=== PATIENT | male | born 1955 | race Caucasian/White ===

== ENCOUNTER 2016-08-28 01:40 | Emergency (ER) | payer MEDICAID, MEDICARE ==
[~2016-08-28] VITALS: Ht 167.6 cm; Wt 90.9 kg
[~2016-08-28 01:40] MED LIST: AMLO-147 PO; ASPI81TA3 PO; ATOR80TA75 PO; CARV12.579 PO; DIAZ-90 PO; FER325 PO; FURO-110 PO; IBUP-1542 PO; LISI2.5T59 PO; NAPR-260 PO; NITR0.4T6 SL; PRAS5TAB3 PO; TAMS0.4C2 PO
[2016-08-28 01:44] VITALS: Ht 167.6 cm; Wt 90.9 kg
== END 2016-08-28 02:10 | disposition left against medical advice (07) ==
LOC: E/R 01:40
DX: Z53.21 Procedure and treatment not carried out due to patient leaving prior to being seen by health care provider (principal)

== ENCOUNTER 2016-08-29 11:00 | Emergency (ER) | payer MEDICARE, OTHER ==
[~2016-08-29] VITALS: Ht 167.6 cm; Wt 89.5 kg
[2016-08-29 11:03] VITALS: Ht 167.6 cm; Wt 89.5 kg
--- NOTE | 2016-08-29 12:19 | ERD ---
ER Documentation Chief Complaint Date/Time DATE: 08/29/16 TIME: 12:16 Chief Complaint chest pain x 10 min ago HPI Patient is a 61-year-old male with coronary disease and hypertension who presents with chest pain. The patient has left-sided chest pain which he describes as a 7 out of 10. It started 20 minutes ago. He says that he does not want to drive with this pain as he was going back to [place]. I saw the patient yesterday for similar symptoms. Review of the old medical record shows multiple visits to ER for chest pain. Review of the emergency department information exchange shows visits to 4 separate emergency departments over the past year and 7 visits to 3 separate emergency departments just in August of this year. He says that he took nitro today for his pain. ROS All systems reviewed and are negative except as per history of present illness. Medications Home Meds Active Scripts Naproxen* (Naprosyn*) 500 Mg Tablet, 500 MG PO BID Y for PAIN AND/OR INFLAMMATION, #30 TAB Prov:HARRIET NINA MD 08/20/15 Ibuprofen* (Motrin*) 600 Mg Tab, 600 MG PO Q8, #30 TAB Prov:LAYO PAN DO 05/22/15 Diazepam* (Valium*) 5 Mg Tablet, 2 MG PO Q8 Y for PAIN LEVEL 6-10, #10 TAB Prov:LAYO PAN DO 01/10/15 Furosemide* (Lasix*) 20 Mg Tablet, 20 MG PO DAILY, #14 TAB Prov:HARRIET NINA MD 10/29/14 Reported Medications Ferrous Sulfate* (Ferrous Sulfate*) 325 Mg Tabec, 325 MG PO DAILY, TAB 12/18/14 Atorvastatin* (Atorvastatin*) 80 Mg Tablet, 80 MG PO HS, TAB 10/27/14 Amlodipine Besylate* (Amlodipine Besylate*) 10 Mg Tablet, 10 MG PO DAILY, TAB 10/27/14 Lisinopril* (Lisinopril*) 2.5 Mg Tablet, 2.5 MG PO DAILY, TAB 10/27/14 Aspirin* (Aspirin* Chew) 81 Mg Tab.chew, 81 MG PO DAILY, TAB.CHEW 10/27/14 Nitroglycerin* (Nitroglycerin* SL) 0.4 Mg Tab.subl, 0.4 MG SL Q5MIN Y for CHEST PAIN, BOTTLE 10/27/14 Carvedilol* (Carvedilol*) 12.5 Mg Tablet, 12.5 MG PO BID, TAB 10/27/14 Prasugrel Hydrochloride* (Effient*) 5 Mg Tablet, 5 MG PO DAILY, TAB 10/27/14 Tamsulosin Hcl* (Tamsulosin Hcl*) 0.4 Mg Cap.er.24h, 0.4 MG PO HS, CAP 10/27/14 Allergies Allergies: Coded Allergies: Penicillins (Verified Allergy, Unknown, SHORT OF BREATHE, 06/05/15) Sulfa (Sulfonamide Antibiotics) (Verified Allergy, Unknown, " GIVES ME TEMPERATURE.", 06/05/15) iodine (Verified Allergy, Unknown, 06/05/15) PMhx/Soc History of Surgery: Yes (appendectomy,tonsillectomy, 8 cardiac stents) Anesthesia Reaction: No Hx Neurological Disorder: No Hx Respiratory Disorders: Yes (chf) Hx Cardiac Disorders: Yes (mi-stents,hld,htn) Hx Psychiatric Problems: No Hx Miscellaneous Medical Probl: Yes (lumbar stenosis) Hx Alcohol Use: No Hx Substance Use: No Hx Tobacco Use: No Smoking Status: Never smoker FmHx Family History: coronary disease Physical Exam Vitals Vital Signs Date Time Temp Pulse Resp B/P Pulse Ox O2 Delivery O2 Flow Rate FiO2 08/29/16 11:03 98.8 102 18 184/84 95 Physical Exam Const: No acute distress Head: Atraumatic Eyes: Normal Conjunctiva ENT: Normal External Ears, Nose and Mouth. Neck: Full range of motion..~ No meningismus. Resp: Clear to auscultation bilaterally Cardio: Regular rate and rhythm, no murmurs Abd: Soft, non tender, non distended. Normal bowel sounds Skin: No petechiae or rashes Back: No midline or flank tenderness Ext: No cyanosis, or edema Neur: Awake and alert Psych: Normal Mood and Affect Procedures/MDM EKG read by me: Rate/Rhythm: Incomplete right bundle branch block Intervals: Normal Impression: Incomplete right bundle branch block without obvious ischemia Patient is a 61-year-old male with cardiac disease who presents with chest pain. He has multiple visits to our emergency department as well as other meds departments for similar complaints. I do believe there may be an element of secondary gain here as he is requesting admission. I do not think he requires admission at this time as I doubt acute coronary syndrome, pneumonia, pneumothorax, pulmonary embolism, or aortic dissection. The patient should follow-up with his primary doctor within 24-48 hours for reevaluation. He can return sooner for any worsening symptoms. I would not give him any narcotic medicines at this time. Departure Diagnosis: Primary Impression: Chest pain Chest pain type: unspecified Qualified Code: R07.9 - Chest pain, unspecified type Condition: Fair Patient Instructions: Chest Pain, Uncertain Cause Referrals: [facility], [facility] YOU HAVE RECEIVED A MEDICAL SCREENING EXAM AND THE RESULTS INDICATE THAT YOU DO NOT HAVE A CONDITION THAT REQUIRES URGENT TREATMENT IN THE EMERGENCY DEPARTMENT. FURTHER EVALUATION AND TREATMENT OF YOUR CONDITION CAN WAIT UNTIL YOU ARE SEEN IN YOUR DOCTORS OFFICE WITHIN THE NEXT 1-2 DAYS. IT IS YOUR RESPONSIBILITY TO MAKE AN APPOINTMENT FOR FOLOW-UP CARE. IF YOU HAVE A PRIMARY DOCTOR --you should call your primary doctor and schedule an appointment IF YOU DO NOT HAVE A PRIMARY DOCTOR YOU CAN CALL OUR PHYSICIAN REFERRAL HOTLINE AT IF YOU CAN NOT AFFORD TO SEE A PHYSICIAN YOU CAN CHOSE FROM THE FOLLOWING [facility] [address] [facility] [address] [facility] [facility] [address] [facility] [address] [facility] [address] [facility] [facility]. [address] Additional Instructions: FOLLOW UP WITH YOUR PRIMARY CARE PHYSICIAN TOMORROW.Return to this facility if you are not improving as expected. MAGAN BEDOYA MD August 29, 2016 12:18
== END 2016-08-29 11:38 | disposition home or self-care (01) ==
LOC: E/R 11:00
DX: R07.9 Chest pain, unspecified (principal); I10 Essential (primary) hypertension; I50.9 Heart failure, unspecified; I25.10 Atherosclerotic heart disease of native coronary artery without angina pectoris; Z79.82 Long term (current) use of aspirin; Z98.61 Coronary angioplasty status
CPT/HCPCS: 99283

== ENCOUNTER 2016-09-08 19:42 | Emergency (ER) | payer MEDICARE, OTHER ==
[~2016-09-08] VITALS: Ht 167.6 cm; Wt 91.0 kg
[2016-09-08 19:49] VITALS: Ht 167.6 cm; Wt 91.0 kg
[2016-09-08] MEDS ORDERED: ASPIRIN 325 MG TAB PO STA (21:13)
--- NOTE | 2016-09-08 21:32 | ERD ---
ER Documentation Chief Complaint Date/Time DATE: 09/08/16 TIME: 21:27 Chief Complaint SHARP LEFT CHEST PAIN RADIATES TO LEFT ARM AND NECK, SOB HPI 61-year-old male who presents with chest pain. The patient is a difficult historian. He states a history of coronary disease and stents. He does describe left-sided chest pain that radiates to his arm. He does not describe the duration of the symptoms with severity. He denies any pleuritic pain. He currently takes anticoagulants for prior history of pulmonary embolism. The patient also takes aspirin and Plavix. He denies exertional symptoms. ROS All systems reviewed and are negative except as per history of present illness. Medications Home Meds Active Scripts Naproxen* (Naprosyn*) 500 Mg Tablet, 500 MG PO BID Y for PAIN AND/OR INFLAMMATION, #30 TAB Prov:HARRIET NINA MD 08/20/15 Ibuprofen* (Motrin*) 600 Mg Tab, 600 MG PO Q8, #30 TAB Prov:LAYO PAN DO 05/22/15 Diazepam* (Valium*) 5 Mg Tablet, 2 MG PO Q8 Y for PAIN LEVEL 6-10, #10 TAB Prov:LAYO PAN DO 01/10/15 Furosemide* (Lasix*) 20 Mg Tablet, 20 MG PO DAILY, #14 TAB Prov:HARRIET NINA MD 10/29/14 Reported Medications Ferrous Sulfate* (Ferrous Sulfate*) 325 Mg Tabec, 325 MG PO DAILY, TAB 12/18/14 Atorvastatin* (Atorvastatin*) 80 Mg Tablet, 80 MG PO HS, TAB 10/27/14 Amlodipine Besylate* (Amlodipine Besylate*) 10 Mg Tablet, 10 MG PO DAILY, TAB 10/27/14 Lisinopril* (Lisinopril*) 2.5 Mg Tablet, 2.5 MG PO DAILY, TAB 10/27/14 Aspirin* (Aspirin* Chew) 81 Mg Tab.chew, 81 MG PO DAILY, TAB.CHEW 10/27/14 Nitroglycerin* (Nitroglycerin* SL) 0.4 Mg Tab.subl, 0.4 MG SL Q5MIN Y for CHEST PAIN, BOTTLE 10/27/14 Carvedilol* (Carvedilol*) 12.5 Mg Tablet, 12.5 MG PO BID, TAB 10/27/14 Prasugrel Hydrochloride* (Effient*) 5 Mg Tablet, 5 MG PO DAILY, TAB 10/27/14 Tamsulosin Hcl* (Tamsulosin Hcl*) 0.4 Mg Cap.er.24h, 0.4 MG PO HS, CAP 10/27/14 Allergies Allergies: Coded Allergies: Penicillins (Verified Allergy, Unknown, SHORT OF BREATHE, 06/05/15) Sulfa (Sulfonamide Antibiotics) (Verified Allergy, Unknown, " GIVES ME TEMPERATURE.", 06/05/15) iodine (Verified Allergy, Unknown, 06/05/15) PMhx/Soc History of Surgery: Yes (appendectomy,tonsillectomy, 8 cardiac stents) Anesthesia Reaction: No Hx Neurological Disorder: No Hx Respiratory Disorders: Yes (chf) Hx Cardiac Disorders: Yes (mi-stents,hld,htn) Hx Psychiatric Problems: No Hx Miscellaneous Medical Probl: Yes (lumbar stenosis) Hx Alcohol Use: No Hx Substance Use: No Hx Tobacco Use: No FmHx Family History: No diabetes Physical Exam Vitals Vital Signs Date Time Temp Pulse Resp B/P Pulse Ox O2 Delivery O2 Flow Rate FiO2 09/08/16 19:49 98.5 93 17 184/67 97 Physical Exam General: Well developed, well nourished, no acute distress Head: Normocephalic, atraumatic. Eyes: Pupils equally reactive, EOM intact ENT: Moist mucous membranes Neck: Supple, no lymphadenopathy Respiratory: Lungs clear bilaterally, no distress Cardiovascular: RRR, no murmurs, rubs, or gallops Abdominal: Soft, non-tender, non-distended, no peritoneal signs : Deferred MSK: No edema, no unilateral swelling, 5/5 strength Neurologic: Alert and oriented, moving all extremities, normal speech, no focal weakness, no cerebellar signs Skin: No rash Psych: Normal mood Result Diagram: 09/08/16213909/08/162139 Results 24 hrs Laboratory Tests Test 09/08/16 21:40 White Blood Count 6.410^3/ul Red Blood Count 4.4410^6/ul Hemoglobin 10.1g/dl Hematocrit 33.6% Mean Corpuscular Volume 75.7fl Mean Corpuscular Hemoglobin 22.7pg Mean Corpuscular Hemoglobin Concent 30.1g/dl Red Cell Distribution Width 15.6% Platelet Count 19019^3/UL Mean Platelet Volume 9.5fl Neutrophils % 69.9% Lymphocytes % 13.4% Monocytes % 13.4% Eosinophils % 2.5% Basophils % 0.3% Nucleated Red Blood Cells % 0.0/100WBC Neutrophils # 4.510^3/ul Lymphocytes # 0.910^3/ul Monocytes # 0.910^3/ul Eosinophils # 0.210^3/ul Basophils # 0.010^3/ul Nucleated Red Blood Cells # 0.010^3/ul Sodium Level 143mmol/L Potassium Level 3.5mmol/L Chloride Level 110mmol/L Carbon Dioxide Level 26mmol/L Anion Gap 11 Blood Urea Nitrogen 18mg/dl Creatinine 0.90mg/dl Glucose Level 114mg/dl Calcium Level 9.2mg/dl Troponin I < 0.012ng/ml Current Medications Medications (Trade) Dose Ordered Sig/Chava Route PRN Reason Start Time Stop Time Status Last Admin Dose Admin Aspirin (Aspirin) 325 mg ONCE STAT PO 09/08/16 21:13 09/08/16 21:15 DC 09/08/16 21:41 Procedures/MDM EKG, MONITORS, & DIAGNOSTIC IMAGING: EKG: I reviewed and interpreted a 12-lead EKG. Rhythm: Normal sinus rhythm Ectopy: None Intervals: No abnormalities ST segments: No elevations or depressions T waves: No contiguous inversions Repeat EKG: EKG: I reviewed and interpreted a 12-lead EKG. Rhythm: Normal sinus rhythm Ectopy: None Intervals: No abnormalities ST segments: No elevations or depressions T waves: No contiguous inversions Chest x-ray: I reviewed and interpreted a 1 view of the chest Mediastinum: No enlargement Cardiac silhouette: No cardiomegaly Airspace: Clear lung junior bilaterally without evidence of pneumothorax Bones: No evidence of fracture LAB INTERPRETATION: Negative troponin MEDICAL DECISION MAKING: The patient's history, physical exam and clinical presentation is possibly concerning for possible cardiogenic etiology and acute coronary syndrome, however it should be strongly noted that the patient has multiple visits to the emergency room for similar symptoms. The patient also has had multiple recent visits to the emergency room with negative workups. The patient was even at an outside hospital less than 12 hours ago for similar symptoms. There seems to be significant secondary gain with this patient given his frequency of visits. While the patient does have significant risk factors and cardiac disease I do not believe that his chest pain today is consistent with cardiac etiology. However, given the patient's past medical history I do believe he warrants an EKG and troponin. Based on the patient's clinical exam and history and risk factors, I have a much lower clinical concern for pulmonary embolism, acute aortic dissection, pneumothorax, pneumonia, cardiac tamponade HEART Score: 3 MACE Rate: 1.7% Shared Decision Making: We had a conversation regarding risk stratification, MACE rate, and the risks, benefits, alternatives of disposition planning options. Disposition planning: Given the frequency of visits, strong suspicion for malingering or secondary gain as well as frequent recent visits to the emergency room I do not feel the patient warrants inpatient hospitalization. I discussed this with the patient and he states that he does not want to stay in the hospital either he would like to go home" has things to do ". ER COURSE: Aspirin provided The patient does not wish to have an IV. He does not wish to stay for serial troponin. The patient can be safely discharged. He understands the risks of missed adverse cardiac event. I kept the patient and/or family informed of laboratory and diagnostic imaging results throughout the emergency room course. DISPOSITION PLAN: We discussed follow up with the patient's primary care doctor within 24 to 48 hours as needed. We also discussed return to the emergency room for worsening symptoms or worsening condition. Outpatient referral: [None required] Departure Diagnosis: Primary Impression: Chest pain Chest pain type: unspecified Qualified Code: R07.9 - Chest pain, unspecified type Additional Impression: Malingering Condition: Stable ERIC YADAV MD Sep 08, 2016 21:32
[2016-09-08 21:48] LABS: ADD SCAN DIFF NO
[2016-09-08 21:49] LABS: BASOPHILS % 0.3 % (0.0-2.0); EOSINOPHILS # 0.2 10^3/ul (0.0-0.5); EOSINOPHILS % 2.5 % (0.0-7.0); HEMATOCRIT 33.6 % (42.0-52.0); HEMOGLOBIN 10.1 g/dl (14.0-18.0); LYMPHOCYTES # 0.9 10^3/ul (0.8-2.9); LYMPHOCYTES % 13.4 % (15.0-51.0); MEAN CORPUSCULAR HEMOGLOBIN 22.7 pg (29.0-33.0); MEAN CORPUSCULAR HGB CONC 30.1 g/dl (32.0-37.0); MEAN CORPUSCULAR VOLUME 75.7 fl (82.0-101.0); MEAN PLATELET VOLUME 9.5 fl (7.4-10.4); MONOCYTE # 0.9 10^3/ul (0.3-0.9); MONOCYTES % 13.4 % (0.0-11.0); NEUTROPHIL # 4.5 10^3/ul (1.6-7.5); NEUTROPHILS % 69.9 % (39.0-77.0); PLATELET COUNT 184 10^3/UL (140-415); RED BLOOD COUNT 4.44 10^6/ul (4.70-6.10); RED CELL DISTRIBUTION WIDTH 15.6 % (11.5-14.5); WHITE BLOOD COUNT 6.4 10^3/ul (4.8-10.8)
[2016-09-08 22:07] LABS: ANION GAP 11 (8-16); BLOOD UREA NITROGEN 18 mg/dl (7-20); CALCIUM 9.2 mg/dl (8.4-10.2); CARBON DIOXIDE 26 mmol/L (21-31); CHLORIDE 110 mmol/L (97-110); GLUCOSE 114 mg/dl (70-220); POTASSIUM 3.5 mmol/L (3.5-5.1); SODIUM 143 mmol/L (135-144)
[2016-09-08 22:18] LABS: TROPONIN-I < 0.012 ng/ml (0.00-0.12)
[2016-09-08 22:58] VITALS: BP 168/87; PULSE 84; RESP 17; TEMP 98.1
--- NOTE | 2016-09-08 23:51 | RADRPT ---
PROCEDURE: XR Chest. CLINICAL INDICATION: Chest pain. TECHNIQUE: Portable AP view of the chest was obtained. COMPARISON: 08/28/2016 FINDINGS: The cardiomediastinal silhouette is within normal limits. The lungs are clear. There is no evidenc e for pleural effusion, pneumothorax or pulmonary vascular congestion. The osseous structures are i ntact with no evidence for acute abnormality. RPTAT:HJJR IMPRESSION: No evidence for acute intrathoracic pathology. Physician Juarez Date Time Electronically viewed and signed by Cecil Hanks Physician on 09/08/2016 23:51 JR/
== END 2016-09-08 22:58 | disposition home or self-care (01) ==
LOC: E/R 19:42
DX: R07.9 Chest pain, unspecified (principal); I50.9 Heart failure, unspecified; I10 Essential (primary) hypertension; Z76.5 Malingerer [conscious simulation]; Z98.61 Coronary angioplasty status; Z79.82 Long term (current) use of aspirin
CPT/HCPCS: 71010; 80048; 84484; 85025; 93005

== ENCOUNTER 2016-11-17 21:53 | Emergency (ER) | payer MEDICARE, OTHER ==
[~2016-11-17] VITALS: Ht 175.3 cm; Wt 88.5 kg
[2016-11-17 22:02] VITALS: Ht 175.3 cm; Wt 88.5 kg
[2016-11-17] MEDS ORDERED: ASPIRIN 325 MG TAB PO STA (22:07)
--- NOTE | 2016-11-17 23:11 | RADRPT ---
PROCEDURE: Portable chest x-ray. CLINICAL INDICATION: 61-year-old male chest pain. TECHNIQUE: Portable AP view of the chest. COMPARISON: None FINDINGS: Cardiomediastinal contours are normal. Lungs are clear.. Negative for pleural effusion or pneumothorax.. No acute bony abnormality. IMPRESSION: Negative for evidence of acute chest process. RPTAT: HCTS Physician Sunitha Date Time Electronically viewed and signed by Annalise Vega Physician on 11/17/2016 23:10 /
[2016-11-17 23:42] LABS: ABNORMAL IP MESSAGE 1; BASOPHILS % 0.4 % (0.0-2.0); EOSINOPHILS # 0.2 10^3/ul (0.0-0.5); HEMOGLOBIN 11.2 g/dl (14.0-18.0); LYMPHOCYTES # 0.9 10^3/ul (0.8-2.9); LYMPHOCYTES % 17.4 % (15.0-51.0); MEAN CORPUSCULAR HEMOGLOBIN 23.7 pg (29.0-33.0); MEAN CORPUSCULAR HGB CONC 30.3 g/dl (32.0-37.0); MEAN CORPUSCULAR VOLUME 78.2 fl (82.0-101.0); MONOCYTE # 0.7 10^3/ul (0.3-0.9); NEUTROPHIL # 3.4 10^3/ul (1.6-7.5); NEUTROPHILS % 64.6 % (39.0-77.0); PLATELET COUNT 191 10^3/UL (140-415); POSITIVE DIFF @See below; RED BLOOD COUNT 4.73 10^6/ul (4.70-6.10); RED CELL DISTRIBUTION WIDTH 22.9 % (11.5-14.5); WHITE BLOOD COUNT 5.3 10^3/ul (4.8-10.8)
[2016-11-17 23:48] VITALS: BP 165/82; PULSE 89; RESP 18; TEMP 98.3
[2016-11-17 23:57] LABS: INR 0.95; PROTIME 12.7 Sec (12.2-14.2)
[2016-11-17 23:58] LABS: PARTIAL THROMBOPLASTIN TIME 26.8 Sec (25.0-35.0)
[2016-11-18 00:02] LABS: CALCIUM 9.7 mg/dl (8.4-10.2); CREATININE 1.22 mg/dl (0.61-1.24); POTASSIUM 3.9 mmol/L (3.5-5.1)
[2016-11-18 00:12] LABS: TROPONIN-I 0.103 ng/ml (0.00-0.12)
--- NOTE | 2016-11-18 00:58 | ERD ---
ER Documentation Chief Complaint Date/Time DATE: 11/18/16 TIME: 00:54 Chief Complaint pt reports sharp cp after stent placement yesterday HPI This 61-year-old male presents to the ER for sharp left-sided chest pain that radiated to his left arm after stents were placed yesterday at [facility]. Is a coming by his dog. He said he had some shortness of breath earlier but does not currently. Denies any nausea or vomiting. Denies lightheadedness currently. ROS All systems reviewed and are negative except as per history of present illness. Medications Home Meds Active Scripts Naproxen* (Naprosyn*) 500 Mg Tablet, 500 MG PO BID Y for PAIN AND/OR INFLAMMATION, #30 TAB Prov:HARRIET NINA MD 08/20/15 Ibuprofen* (Motrin*) 600 Mg Tab, 600 MG PO Q8, #30 TAB Prov:LAYO PAN DO 05/22/15 Diazepam* (Valium*) 5 Mg Tablet, 2 MG PO Q8 Y for PAIN LEVEL 6-10, #10 TAB Prov:LAYO PAN DO 01/10/15 Furosemide* (Lasix*) 20 Mg Tablet, 20 MG PO DAILY, #14 TAB Prov:HARRIET NINA MD 10/29/14 Reported Medications Ferrous Sulfate* (Ferrous Sulfate*) 325 Mg Tabec, 325 MG PO DAILY, TAB 12/18/14 Atorvastatin* (Atorvastatin*) 80 Mg Tablet, 80 MG PO HS, TAB 10/27/14 Amlodipine Besylate* (Amlodipine Besylate*) 10 Mg Tablet, 10 MG PO DAILY, TAB 10/27/14 Lisinopril* (Lisinopril*) 2.5 Mg Tablet, 2.5 MG PO DAILY, TAB 10/27/14 Aspirin* (Aspirin* Chew) 81 Mg Tab.chew, 81 MG PO DAILY, TAB.CHEW 10/27/14 Nitroglycerin* (Nitroglycerin* SL) 0.4 Mg Tab.subl, 0.4 MG SL Q5MIN Y for CHEST PAIN, BOTTLE 10/27/14 Carvedilol* (Carvedilol*) 12.5 Mg Tablet, 12.5 MG PO BID, TAB 10/27/14 Prasugrel Hydrochloride* (Effient*) 5 Mg Tablet, 5 MG PO DAILY, TAB 10/27/14 Tamsulosin Hcl* (Tamsulosin Hcl*) 0.4 Mg Cap.er.24h, 0.4 MG PO HS, CAP 10/27/14 Allergies Allergies: Coded Allergies: Penicillins (Verified Allergy, Unknown, SHORT OF BREATHE, 06/05/15) Sulfa (Sulfonamide Antibiotics) (Verified Allergy, Unknown, " GIVES ME TEMPERATURE.", 06/05/15) iodine (Verified Allergy, Unknown, 06/05/15) PMhx/Soc History of Surgery: Yes (appendectomy,tonsillectomy, 8 cardiac stents) Anesthesia Reaction: No Hx Neurological Disorder: No Hx Respiratory Disorders: Yes (chf) Hx Cardiac Disorders: Yes (mi-stents,hld,htn) Hx Psychiatric Problems: No Hx Miscellaneous Medical Probl: Yes (lumbar stenosis) Hx Alcohol Use: No Hx Substance Use: No Hx Tobacco Use: No Physical Exam Vitals Vital Signs Date Time Temp Pulse Resp B/P Pulse Ox O2 Delivery O2 Flow Rate FiO2 11/17/16 23:48 Nasal Cannula 11/17/16 23:48 98.3 89 18 165/82 99 Room Air 11/17/16 22:02 98.3 85 18 175/79 99 Physical Exam Const: [] No distress Head: Atraumatic Eyes: Normal Conjunctiva ENT: Normal External Ears, Nose and Mouth. Neck: Full range of motion..~ No meningismus. Resp: Clear to auscultation bilaterally Cardio: Regular rate and rhythm, no murmurs Abd: Soft, non tender, non distended. Normal bowel sounds Skin: No petechiae or rashes Back: No midline or flank tenderness Ext: No cyanosis, or edema Neur: Awake and alert and oriented 3, no focal deficits Psych: Normal Mood and Affect Result Diagram: 11/17/16 2330 11/17/16 2330 Results 24 hrs Laboratory Tests Test 11/17/16 23:30 White Blood Count 5.310^3/ul Red Blood Count 4.7310^6/ul Hemoglobin 11.2g/dl Hematocrit 37.0% Mean Corpuscular Volume 78.2fl Mean Corpuscular Hemoglobin 23.7pg Mean Corpuscular Hemoglobin Concent 30.3g/dl Red Cell Distribution Width 22.9% Platelet Count 34091^3/UL Mean Platelet Volume 9.0fl Neutrophils % 64.6% Lymphocytes % 17.4% Monocytes % 14.0% Eosinophils % 3.0% Basophils % 0.4% Nucleated Red Blood Cells % 0.0/100WBC Neutrophils # 3.410^3/ul Lymphocytes # 0.910^3/ul Monocytes # 0.710^3/ul Eosinophils # 0.210^3/ul Basophils # 0.010^3/ul Nucleated Red Blood Cells # 0.010^3/ul Prothrombin Time 12.7Sec Prothrombin Time Ratio 1.0 INR International Normalized Ratio 0.95 Activated Partial Thromboplast Time 26.8Sec Sodium Level 144mmol/L Potassium Level 3.9mmol/L Chloride Level 101mmol/L Carbon Dioxide Level 30mmol/L Anion Gap 17 Blood Urea Nitrogen 25mg/dl Creatinine 1.22mg/dl Glucose Level 91mg/dl Calcium Level 9.7mg/dl Troponin I 0.103ng/ml B-Type Natriuretic Peptide 85PG/ML Current Medications Medications (Trade) Dose Ordered Sig/Chava Route PRN Reason Start Time Stop Time Status Last Admin Dose Admin Aspirin (Aspirin) 325 mg ONCE STAT PO 11/17/16 22:07 11/17/16 22:09 DC 11/17/16 22:07 Procedures/MDM Chest pain 1 day status post stent placement. Patient appeared in no distress but asked if he could be admitted to the hospital. Said that he was and [facility] and wanted to stay 1 more day in the would not let him. He was given an aspirin. Will cardiac workup was performed with no signs of acute ischemia on EKG. troponin of 0.1 and is not completely unexpected after stent placement. Because of symptoms and recent stent placement I told the patient he could be admitted to the hospital I in fact recommended this. I will arrange being made for the patient to be admitted he decided that he would rather leave AGAINST MEDICAL ADVICE and go home. We are unable to convince him to stay as he said he had to go home with his dog second properly feed and water it. EKG interpretation: Normal sinus rhythm rate of 82, incomplete right bundle, T- wave flattening/mild inversion in lead III. No ST or T-wave changes concerning for acute ischemia. Normal intervals. quality control tech interpretation: Normal sinus rhythm without arrhythmia Chest x-ray interpretation: I see no acute process. I see no pneumothorax, no pulmonary edema, no widened mediastinum, no fractures. Departure Diagnosis: Primary Impression: Chest pain Condition: Stable PABLO GUY DO Nov 18, 2016 00:58
== END 2016-11-18 01:27 | disposition left against medical advice (07) ==
LOC: E/R 21:53
DX: R07.9 Chest pain, unspecified (principal); I10 Essential (primary) hypertension; I50.9 Heart failure, unspecified; R06.02 Shortness of breath; Z79.82 Long term (current) use of aspirin
CPT/HCPCS: 36415; 71010; 80048; 83880; 84484; 85025; 85610; 85730; 93005

== ENCOUNTER 2016-12-02 11:17 | Emergency (ER) | payer MEDICARE, OTHER ==
[~2016-12-02] VITALS: Ht 160 cm; Wt 89.0 kg
[2016-12-02 11:22] VITALS: Ht 160 cm; Wt 89.0 kg
== END 2016-12-02 17:43 | disposition left against medical advice (07) ==
LOC: E/R 11:17
DX: Z53.21 Procedure and treatment not carried out due to patient leaving prior to being seen by health care provider (principal)
CPT/HCPCS: 93005

== ENCOUNTER 2016-12-06 15:18 | Emergency (ER) | payer MEDICARE ==
[~2016-12-06] VITALS: Ht 165.1 cm; Wt 87.5 kg
[2016-12-06 15:22] VITALS: Ht 165.1 cm; Wt 87.5 kg
--- NOTE | 2016-12-06 18:51 | ERD ---
ER Documentation Chief Complaint Date/Time DATE: 12/06/16 TIME: 18:49 Chief Complaint Complains of cough and chest pain HPI Patient is a 61-year-old male with hypertension who presents with chest pain and cough.He said that he has had cough for the past 7 weeks. He said that he was just admitted and discharged from [facility] recently over the past few days. Upon review of old medical records the patient has multiple visits for the same and presents to our ER frequently for chest pain. Review of the emergency department information exchange system shows visits to 6 separate emergency departments. He does have patient care guidelines as well recommending avoidance of narcotic medicines. He does not currently have a primary doctor. ROS All systems reviewed and are negative except as per history of present illness. Medications Home Meds Active Scripts Naproxen* (Naprosyn*) 500 Mg Tablet, 500 MG PO BID Y for PAIN AND/OR INFLAMMATION, #30 TAB Prov:HARRIET NINA MD 08/20/15 Ibuprofen* (Motrin*) 600 Mg Tab, 600 MG PO Q8, #30 TAB Prov:LAYO PAN DO 05/22/15 Diazepam* (Valium*) 5 Mg Tablet, 2 MG PO Q8 Y for PAIN LEVEL 6-10, #10 TAB Prov:LAYO PAN DO 01/10/15 Furosemide* (Lasix*) 20 Mg Tablet, 20 MG PO DAILY, #14 TAB Prov:HARRIET NINA MD 10/29/14 Reported Medications Ferrous Sulfate* (Ferrous Sulfate*) 325 Mg Tabec, 325 MG PO DAILY, TAB 12/18/14 Atorvastatin* (Atorvastatin*) 80 Mg Tablet, 80 MG PO HS, TAB 10/27/14 Amlodipine Besylate* (Amlodipine Besylate*) 10 Mg Tablet, 10 MG PO DAILY, TAB 10/27/14 Lisinopril* (Lisinopril*) 2.5 Mg Tablet, 2.5 MG PO DAILY, TAB 10/27/14 Aspirin* (Aspirin* Chew) 81 Mg Tab.chew, 81 MG PO DAILY, TAB.CHEW 10/27/14 Nitroglycerin* (Nitroglycerin* SL) 0.4 Mg Tab.subl, 0.4 MG SL Q5MIN Y for CHEST PAIN, BOTTLE 10/27/14 Carvedilol* (Carvedilol*) 12.5 Mg Tablet, 12.5 MG PO BID, TAB 10/27/14 Prasugrel Hydrochloride* (Effient*) 5 Mg Tablet, 5 MG PO DAILY, TAB 10/27/14 Tamsulosin Hcl* (Tamsulosin Hcl*) 0.4 Mg Cap.er.24h, 0.4 MG PO HS, CAP 10/27/14 Allergies Allergies: Coded Allergies: Penicillins (Verified Allergy, Unknown, SHORT OF BREATHE, 06/05/15) Sulfa (Sulfonamide Antibiotics) (Verified Allergy, Unknown, " GIVES ME TEMPERATURE.", 06/05/15) iodine (Verified Allergy, Unknown, 06/05/15) PMhx/Soc Medical and Surgical Hx: pt denies Medical Hx, pt denies Surgical Hx History of Surgery: Yes (appendectomy,tonsillectomy, 8 cardiac stents) Anesthesia Reaction: No Hx Neurological Disorder: No Hx Respiratory Disorders: Yes (chf) Hx Cardiac Disorders: Yes (mi-stents,hld,htn) Hx Psychiatric Problems: No Hx Miscellaneous Medical Probl: Yes (lumbar stenosis) Hx Alcohol Use: No Hx Substance Use: No Hx Tobacco Use: No Smoking Status: Never smoker FmHx Family History: diabetes Physical Exam Vitals Vital Signs Date Time Temp Pulse Resp B/P Pulse Ox O2 Delivery O2 Flow Rate FiO2 12/06/16 15:22 99.3 99 20 156/76 96 Physical Exam Const: No acute distress Head: Atraumatic Eyes: Normal Conjunctiva ENT: Normal External Ears, Nose and Mouth. Neck: Full range of motion..~ No meningismus. Resp: Clear to auscultation bilaterally Cardio: Regular rate and rhythm, no murmurs Abd: Soft, non tender, non distended. Normal bowel sounds Skin: No petechiae or rashes Back: No midline or flank tenderness Ext: No cyanosis, or edema Neur: Awake and alert Psych: Normal Mood and Affect Procedures/MDM EKG shows normal sinus rhythm, normal intervals, no ST elevations or depressions , overall impression is normal EKG. Patient is a 61-year-old male who presents with chest pain and cough. His EKG shows no signs of ischemia or arrhythmia. His vital signs are normal and his lung sounds are normal. I doubt pneumonia, pneumothorax, pulmonary embolism, aortic dissection, or acute coronary syndrome. There may be an element of drug- seeking behavior and given the care plan I will not give him narcotic medicines. He can return for any worsening symptoms. He should follow-up the local clinics within 24-48 hours as he does not currently have a primary doctor. Patient understands the plan is okay for discharge at this time. Departure Diagnosis: Primary Impression: Chest pain Chest pain type: unspecified Qualified Code: R07.9 - Chest pain, unspecified type Additional Impression: Cough Condition: Fair Patient Instructions: Chest Pain, Uncertain Cause Referrals: [facility] YOU HAVE RECEIVED A MEDICAL SCREENING EXAM AND THE RESULTS INDICATE THAT YOU DO NOT HAVE A CONDITION THAT REQUIRES URGENT TREATMENT IN THE EMERGENCY DEPARTMENT. FURTHER EVALUATION AND TREATMENT OF YOUR CONDITION CAN WAIT UNTIL YOU ARE SEEN IN YOUR DOCTORS OFFICE WITHIN THE NEXT 1-2 DAYS. IT IS YOUR RESPONSIBILITY TO MAKE AN APPOINTMENT FOR FOLOW-UP CARE. IF YOU HAVE A PRIMARY DOCTOR --you should call your primary doctor and schedule an appointment IF YOU DO NOT HAVE A PRIMARY DOCTOR YOU CAN CALL OUR PHYSICIAN REFERRAL HOTLINE AT IF YOU CAN NOT AFFORD TO SEE A PHYSICIAN YOU CAN CHOSE FROM THE FOLLOWING [facility] [address] [facility]. [facility] [address] [facility] [facility] [address] [facility] [facility] [address] [facility]. [facility] [address] [facility]. [facility]. [address] Additional Instructions: Call your primary care doctor TOMORROW for an appointment during the next 1-2 days.See the doctor sooner or return here if your condition worsens before your appointment time. MAGAN BEDOYA MD Dec 06, 2016 18:51
== END 2016-12-06 16:57 | disposition home or self-care (01) ==
LOC: E/R 15:18
DX: R07.9 Chest pain, unspecified (principal); I10 Essential (primary) hypertension; I50.9 Heart failure, unspecified; Z79.82 Long term (current) use of aspirin; Z98.61 Coronary angioplasty status
CPT/HCPCS: 93005

== ENCOUNTER 2017-02-05 21:14 | Observation (INO) | payer MEDICARE, OTHER ==
[~2017-02-05] VITALS: Ht 167.6 cm; Wt 91.9 kg
[~2017-02-05 21:14] MED LIST changes: +NITR0.4T32 SL; -NITR0.4T6 SL
[2017-02-05] MEDS ORDERED: CLOP75TA4 PO (22:51)
[2017-02-05] MEDS ORDERED: ISOS120T15 PO (22:51)
[2017-02-05] MEDS ORDERED: LISI10TA2 PO (22:52)
[2017-02-05] MEDS ORDERED: RANO500T2 PO (22:55)
[2017-02-05] MEDS ORDERED: METO-407 PO (22:55)
[2017-02-05 22:58] LABS: BASOPHILS % 0.1 % (0.0-2.0); HEMATOCRIT 32.6 % (42.0-52.0); HEMOGLOBIN 10.6 g/dl (14.0-18.0); LYMPHOCYTES # 0.7 10^3/ul (0.8-2.9); MEAN CORPUSCULAR HEMOGLOBIN 25.9 pg (29.0-33.0); MEAN CORPUSCULAR HGB CONC 32.5 g/dl (32.0-37.0); MEAN CORPUSCULAR VOLUME 79.7 fl (82.0-101.0); MEAN PLATELET VOLUME 9.3 fl (7.4-10.4); MONOCYTE # 1.1 10^3/ul (0.3-0.9); MONOCYTES % 6.6 % (0.0-11.0); NEUTROPHIL # 14.5 10^3/ul (1.6-7.5); NEUTROPHILS % 88.8 % (39.0-77.0); PLATELET COUNT 278 10^3/UL (140-415); RED BLOOD COUNT 4.09 10^6/ul (4.70-6.10); RED CELL DISTRIBUTION WIDTH 15.1 % (11.5-14.5); WHITE BLOOD COUNT 16.4 10^3/ul (4.8-10.8)
--- NOTE | 2017-02-05 23:04 | RADRPT ---
PROCEDURE: XR Chest. CLINICAL INDICATION: Chest Pain. TECHNIQUE: Single frontal view of the chest was obtained COMPARISON: Chest radiograph dated August 28, 2016. FINDINGS: The heart and mediastinum are within normal limits. The lungs are clear. There is no pleural effusion or pneumothorax. The osseous structures are grossly unremarkable. IMPRESSION: 1. No acute cardiopulmonary disease. RPTAT:AAJJ Physician Sundeep Date Time Electronically viewed and signed by Ani Hazel Physician on 02/05/2017 23:04 /
[2017-02-05 23:15] LABS: INR 1.05; PROTIME 13.7 Sec (12.2-14.2); PT RATIO 1.1
[2017-02-05 23:16] LABS: PARTIAL THROMBOPLASTIN TIME 25.5 Sec (25.0-35.0)
[2017-02-05 23:18] LABS: ANION GAP 12 (8-16); BLOOD UREA NITROGEN 29 mg/dl (7-20); CALCIUM 9.3 mg/dl (8.4-10.2); CARBON DIOXIDE 27 mmol/L (21-31); CHLORIDE 106 mmol/L (97-110); CREATININE 1.02 mg/dl (0.61-1.24); GLUCOSE 144 mg/dl (70-220); POTASSIUM 4.1 mmol/L (3.5-5.1); SODIUM 141 mmol/L (135-144)
[2017-02-05 23:32] LABS: TROPONIN-I < 0.012 ng/ml (0.00-0.12)
[2017-02-05] MEDS ORDERED: SOD CHLORIDE 0.9% 1,000 ML IV SCH (23:47)
--- NOTE | 2017-02-05 23:54 | ERD ---
ER Documentation Chief Complaint Chief Complaint pressure like chest pain since 5 hours ago HPI This 61-year-old male presents to the emergency room for chest pain that he has had intermittently on and off for the past 2 days. The patient states that he does have a history of 9 cardiac stents, hypertension, hyperlipidemia and states that he came to the ER today for evaluation of his symptoms. He describes his pain as a pressure-like sensation in the center of the chest with no radiation associated with mild shortness of breath however no nausea, no vomiting and no diaphoresis. Patient denies any relieving factors for her symptoms and came to the ER for further evaluation ROS All systems reviewed and are negative except as per history of present illness. Medications Home Meds Active Scripts Ibuprofen* (Motrin*) 600 Mg Tab, 600 MG PO Q8, #30 TAB Prov:PEPPER PANTHANH HENLEY 05/22/15 Reported Medications Ranolazine* (Ranexa*) 500 Mg Tab.sr.12h, 500 MG PO Q12, TAB 02/05/17 Metoprolol Tartrate* (Lopressor*) 100 Mg Tablet, 100 MG PO DAILY, #60 TAB 02/05/17 Lisinopril* (Lisinopril*) 10 Mg Tablet, 10 MG PO DAILY, #30 TAB 02/05/17 Clopidogrel Bisulfate* (Clopidogrel Bisulfate*) 75 Mg Tablet, 75 MG PO DAILY, # 30 TAB 02/05/17 Isosorbide Mononitrate* (Isosorbide Mononitrate*) 120 Mg Tab.sr.24h, 120 MG PO DAILY, TAB.SA 02/05/17 Atorvastatin* (Atorvastatin*) 80 Mg Tablet, 80 MG PO HS, TAB 10/27/14 Amlodipine Besylate* (Amlodipine Besylate*) 10 Mg Tablet, 10 MG PO DAILY, TAB 10/27/14 Aspirin* (Aspirin* Chew) 81 Mg Tab.chew, 81 MG PO DAILY, TAB.CHEW 10/27/14 Nitroglycerin* (Nitroglycerin* SL) 0.4 Mg Tab.subl, 0.4 MG SL Q5MIN Y for CHEST PAIN, BOTTLE 10/27/14 Carvedilol* (Carvedilol*) 12.5 Mg Tablet, 12.5 MG PO BID, TAB 10/27/14 Prasugrel Hydrochloride* (Effient*) 5 Mg Tablet, 5 MG PO DAILY, TAB 10/27/14 Tamsulosin Hcl* (Tamsulosin Hcl*) 0.4 Mg Cap.er.24h, 0.4 MG PO HS, CAP 10/27/14 Discontinued Reported Medications Ferrous Sulfate* (Ferrous Sulfate*) 325 Mg Tabec, 325 MG PO DAILY, TAB 12/18/14 Lisinopril* (Lisinopril*) 2.5 Mg Tablet, 10 MG PO DAILY, TAB 10/27/14 Discontinued Scripts Naproxen* (Naprosyn*) 500 Mg Tablet, 500 MG PO BID Y for PAIN AND/OR INFLAMMATION, #30 TAB Prov:HARRIET NINA MD 08/20/15 Diazepam* (Valium*) 5 Mg Tablet, 2 MG PO Q8 Y for PAIN LEVEL 6-10, #10 TAB Prov:LAYO PAN DO 01/10/15 Furosemide* (Lasix*) 20 Mg Tablet, 20 MG PO DAILY, #14 TAB Prov:HARRIET NINA MD 10/29/14 Allergies Allergies: Coded Allergies: Penicillins (Unverified Allergy, Unknown, SHORTNESS OF BREATH, 02/05/17) Sulfa (Sulfonamide Antibiotics) (Unverified Allergy, Unknown, " GIVES ME TEMPERATURE.", 02/05/17) iodine (Unverified Allergy, Unknown, 02/05/17) PMhx/Soc History of Surgery: Yes (appendectomy,tonsillectomy, 8 cardiac stents) Anesthesia Reaction: No Hx Neurological Disorder: No Hx Respiratory Disorders: Yes (chf) Hx Cardiac Disorders: Yes (mi-stents,hld,htn) Hx Psychiatric Problems: No Hx Miscellaneous Medical Probl: Yes (lumbar stenosis) Hx Alcohol Use: No Hx Substance Use: No Hx Tobacco Use: No Smoking Status: Never smoker Physical Exam Vitals Vital Signs Date Time Temp Pulse Resp B/P Pulse Ox O2 Delivery O2 Flow Rate FiO2 02/05/17 21:16 97.7 86 20 145/67 98 Physical Exam INITIAL VITAL SIGNS: Reviewed by me GENERAL: The patient is well developed and appropriate for usual state of health in no apparent distress HEENT: Pupils equal, round, and reactive to light. EOMI. There is no scleral icterus. NECK: C-spine is soft and supple, there is no meningismus. There is no cervical lymphadenopathy. LUNGS: Clear to auscultation bilaterally. There are no rales, wheezes or rhonchi. HEART: Regular rate and rhythm, no murmurs, clicks, rubs or gallops. ABDOMEN: Soft, non-tender, non-distended. There are bowel sounds in all four quadrants. No rebound or guarding. EXTREMITIES: There is no peripheral cyanosis or edema. No focal swelling or erythema. NEUROLOGICAL: The patient moves all four extremities with 5/5 strength. Cranial nerves II - XII are intact. Normal gait. Alert and oriented SKIN: There is no apparent rash or petechiae. HEME/LYMPHATIC: There is no evidence of excessive bruising or lymphedema. PSYCHIATRIC: The patient does not appear anxious or depressed. Result Diagram: 02/05/17224002/05/172240 Results 24 hrs Laboratory Tests Test 02/05/17 22:41 White Blood Count 16.410^3/ul Red Blood Count 4.0910^6/ul Hemoglobin 10.6g/dl Hematocrit 32.6% Mean Corpuscular Volume 79.7fl Mean Corpuscular Hemoglobin 25.9pg Mean Corpuscular Hemoglobin Concent 32.5g/dl Red Cell Distribution Width 15.1% Platelet Count 77419^3/UL Mean Platelet Volume 9.3fl Neutrophils % 88.8% Lymphocytes % 4.0% Monocytes % 6.6% Eosinophils % 0.0% Basophils % 0.1% Nucleated Red Blood Cells % 0.0/100WBC Neutrophils # 14.510^3/ul Lymphocytes # 0.710^3/ul Monocytes # 1.110^3/ul Eosinophils # 0.010^3/ul Basophils # 0.010^3/ul Nucleated Red Blood Cells # 0.010^3/ul Prothrombin Time 13.7Sec Prothrombin Time Ratio 1.1 INR International Normalized Ratio 1.05 Activated Partial Thromboplast Time 25.5Sec Sodium Level 141mmol/L Potassium Level 4.1mmol/L Chloride Level 106mmol/L Carbon Dioxide Level 27mmol/L Anion Gap 12 Blood Urea Nitrogen 29mg/dl Creatinine 1.02mg/dl Glucose Level 144mg/dl Calcium Level 9.3mg/dl Troponin I < 0.012ng/ml Current Medications Medications (Trade) Dose Ordered Sig/Chava Route PRN Reason Start Time Stop Time Status Last Admin Dose Admin Sodium Chloride (NS) 1,000 ml @ 80 mls/hr [id number] IV 02/05/17 23:47 02/06/17 12:16 Ondansetron HCl (Zofran Inj) 4 mg ER BRIDGE PRN IV NAUSEA AND/OR VOMITING 02/06/17 00:00 02/06/17 23:59 Acetaminophen (Tylenol Tab) 650 mg ER BRIDGE PRN PO MILD PAIN/FEVER 02/06/17 00:00 02/06/17 23:59 Procedures/MDM EKG: Rate/Rhythm: [Normal Sinus Rhythm] QRS, ST, T-waves: [No changes consistent w/ acute ischemia] Impression: [No evidence of ischemia or arrhythmia] Chest X-ray 1V Interpreted by me: Soft Tissue: No acute abnormalities Bones: No acute abnormalities Mediastinum/Cardiac Silhouette/Lungs: [No acute abnormalities] This 61-year-old male presents to the emergency room for evaluation of chest pain. When I evaluated him he is hemodynamically stable, nontoxic-appearing and not hypoxic. Patient does have a significant cardiac history with [address] The patient's first EKG is nonischemic, troponin is negative however given his age and risk factors he will be placed in for admission at this time. The patient states that he was supposed to have an angiogram done as an elective procedure however he decided not to do it and states that "I regret that decision". The patient will be placed in for admission on the telemetry floor under the care of Dr. Warren Mills Diagnosis: Primary Impression: Chest pain Additional Impression: Microcytic anemia Condition: Stable LAYO PAN DO Feb 05, 2017 23:54
[2017-02-06] VITALS (10 sets, daily range): BP systolic 110–155; BP diastolic 57–71; PULSE 67–77; RESP 18; TEMP 98.7; Ht 167.6 cm; Wt 91.9 kg
[2017-02-06] MEDS ORDERED: ASPIRIN 325 MG TAB PO ONE
[2017-02-06] MEDS ORDERED: NITROGLYCERIN (SL) 0.4 MG TAB SL ONE (00:12)
[2017-02-06] MEDS ORDERED: NITROGLYCERIN (SL) 0.4 MG TAB ONE (00:18)
[2017-02-06] MEDS ORDERED: morphine 2 MG INJ IV PRN (01:30)
[2017-02-06] MEDS: morphine 2 MG INJ IV PRN ×2 (02:56→05:06)
[2017-02-06] MEDS ORDERED: NACL 0.9% 3 ML SYG IV SCH (04:00)
[2017-02-06] MEDS ORDERED: ONDANSETRON 4 MG INJ IV PRN ×2 (04:00)
[2017-02-06] MEDS ORDERED: ACETAMINOPHEN 325 MG TAB PO PRN ×2 (04:00)
--- NOTE | 2017-02-06 05:11 | HP ---
Date/Time of Note Date/Time of Note DATE: 02/06/17 TIME: 04:55 Assessment/Plan VTE Prophylaxis VTE Prophylaxis Intervention: SCD's Lines/Catheters IV Catheter Type (from Nrsg): Saline Lock Assessment/Plan Chief Complaint/Hosp Course This is a 61-year-old male was being admitted to the telemetry floor for: #1 chest pain: Highly suspicious for ACS. Patient has extensive cardiac history and with his recent admission to [facility] for similar presentation I do feel like the patient is having cardiac related symptoms. At the current time his troponin first set is negative, will trend troponins. EKG is within acceptable values at this time with no acute ST or T-wave abnormalities. Morphine 2 every 2 for chest pain while monitoring blood pressure. If pain persists despite morphine may need to upgrade the patient to the ICU and initiate a nitroglycerin drip. Patient did not tolerate Nitropaste in the past that he reports. Will consult cardiology. Will obtain an echocardiogram. #2 coronary artery disease: Extensive cardiac history with stents 10 according to the patient. The current time will resume patient's home medications of aspirin/plavix/statin/beta-bonifacio/STEPH inhibitor. Patient has carvedilol and metoprolol on his med rec as well as Effient and Plavix at the current time I will just put him on carvedilol and Plavix and defer further medication management to cardiology. #3 chronic kidney disease: At the current time patient's creatinine is 1.03. Will avoid nephrotoxic agents. Will monitor renal function. #4 leukocytosis: Currently patient is afebrile. There are no overt signs of any infection. This could be stress related. Will continue to monitor this. #5 microcytic anemia: Check iron panel. #6 history of CHF: We will resume home medications. At the current time patient does not appear to be volume overloaded. #7 history of hairy cell leukemia: In remission #8 ascending aortic aneurysm: This is being monitored as an outpatient. Currently blood pressure and patient is not complaining of any tearing pain. Will continue to monitor signs and symptoms. #9 DVT GI prophylaxis: SCDs, Protonix Further treatment strategy will be implemented as per the clinical course Problems: HPI/ROS Admit Date/Time Admit Date/Time Feb 05, 2017 at 23:48 Hx of Present Illness cc: left sided chest pain This 61-year-old male presents to the emergency room for chest pain that he has had intermittently on and off for the past 2 days. The patient states that he does have a history of 10 cardiac stents, hypertension, hyperlipidemia and states that he came to the ER today for evaluation of his symptoms. He describes his pain as a pressure-like sensation in the center of the chest with no radiation associated with mild shortness of breath however no nausea, no vomiting and no diaphoresis. He states that he was at [facility] approximately 2 days ago and there he was scheduled to have a cardiac catheterization however the patient was hesitant to receive the procedure so the patient was subsequently discharged. At the current time patient states that he still does have on and off left-sided chest pain since he has come to the ER. He did receive some relief from nitroglycerin sublingual however he had greater relief from morphine IV. In the past he has used Nitropaste but that has not helped him, nitroglycerin drip has given him relief. He states that while he was at [facility] he did not have any elevated troponins. Allergies: Penicillin, sulfa, contrast dye, iodine Medications: See KRZYSZTOF PETERSEN Const: As per HPI Eyes : No pain discharge or redness or change in visual acuity ENT: No pain, sore throat, congestion, congestion, dysphagia or discharge Respiratory: No shortness of breath, cough, sputum, wheezing, or pleuritic pain Cardiovascular: As per HPI GI : no change in appetite, abdominal pain, nausea, vomiting, diarrhea, constipation, or change in the color his stool Genitourinary: No dysuria, hematuria, flank pain , discharge or CVA tenderness Musculoskeletal: No joint pain, back pain, neck pain, restricted range of motion in neck or joints Skin: No rash, bruising or hives Neuro: No headache, dizziness, syncope, seizure, focal weakness Endocrine: No polyuria, polydipsia, temperature intolerance Psych: No hallucination, depression, anxiety or suicidal ideation PMH/Family/Social Past Medical History Coronary artery disease, history of hairy cell leukemia, chronic kidney disease , aortic aneurysm, BPH, history of CHF Past Surgical History Cardiac stents 10, appendectomy, tonsillectomy Family History Significant Family History: heart disease (Mother), diabetes (Father) Social History Alcohol Use: none Smoking Status: Never smoker Drug Use: none Exam/Review of Systems Vital Signs Vitals Vital Signs Date Time Temp Pulse Resp B/P Pulse Ox O2 Delivery O2 Flow Rate FiO2 02/06/17 03:56 98.7 72 16 125/85 99 Nasal Cannula 2.0 Exam Exam General: Patient is a pleasant male laying in bed in mild distress from pain HEENT: Atraumatic, normocephalic. The pupils are equal, round and reactive. Extraocular motor are intact Neck: Supple with full range of motion. No rigidity or meningismus Chest: Nontender Lungs: Diminished breath sounds at the bases bilaterally Heart: Normal S1-S2, Regular rhythm and rate no overt murmurs appreciated Abdomen: Soft , nontender, nondistended , bowel sounds are present. No guarding no rebound tenderness , No masses or organomegaly. No costovertebral temporal angle mass Extremities: Normal to inspection, no edema no cyanosis Neurologic: Normal mental status, speech normal, cranial nerves II through XII are intact, motor and sensory are intact, no focal weakness Additional Comments PROCEDURE: XR Chest. CLINICAL INDICATION: Chest Pain. TECHNIQUE: Single frontal view of the chest was obtained COMPARISON: Chest radiograph dated August 28, 2016. FINDINGS: The heart and mediastinum are within normal limits. The lungs are clear. There is no pleural effusion or pneumothorax. The osseous structures are grossly unremarkable. IMPRESSION: 1. No acute cardiopulmonary disease. RPTAT:AAJJ Physician Sundeep Date Time Electronically viewed and signed by Physician Sundeep on 02/05/2017 23:04 QL/ CC: LAYO PAN DO EKG: Rate/Rhythm: [Normal Sinus Rhythm] QRS, ST, T-waves: [No changes consistent w/ acute ischemia] Impression: [No evidence of ischemia or arrhythmia] As per ED physician documentation Labs Result Diagram: 02/05/17224002/05/172240 Medications Medications Current Medications Sodium Chloride (NS) 1,000 ml @ 80 mls/hr [id number] IV Last administered on 02/06t 00:07; Admin Dose 80 MLS/HR; Start 02/05/17 at 23:47; Stop 02/06/17 at 12 :16 Morphine Sulfate (morphine) 2 mg Q2H PRN IV PAIN LEVEL 4-7 Last administered on 02/06/17t 02:56; Admin Dose 2 MG; Start 02/06/17 at 02:30 Ondansetron HCl (Zofran Inj) 4 mg Q6H PRN IV NAUSEA AND/OR VOMITING; Start 02/06/17 at 04:00 Acetaminophen (Tylenol Tab) 650 mg Q6H PRN PO PAIN LEVEL 1-3 OR FEVER; Start 02/06/17 at 04:00 Pantoprazole (Protonix Iv) 40 mg DAILY@06 IV ; Start 02/06/17 at 06:00 Amlodipine Besylate (Norvasc) 10 mg DAILY PO ; Start 02/06/17 at 09:00; Status UNV Aspirin (Aspirin) 81 mg DAILY PO ; Start 02/06/17 at 09:00; Status UNV Atorvastatin Calcium (Lipitor) 80 mg HS PO ; Start 02/06/17 at 21:00; Status UNV Carvedilol (Coreg) 12.5 mg BID PO ; Start 02/06/17 at 09:00; Status UNV Clopidogrel Bisulfate (plaVIX) 75 mg DAILY PO ; Start 02/06/17 at 09:00; Status UNV Isosorbide Mononitrate (Imdur) 120 mg DAILY PO ; Start 02/06/17 at 09:00; Status UNV Prasugrel (Effient) 5 mg DAILY PO ; Start 02/06/17 at 09:00; Status UNV Ranolazine (Ranexa) 500 mg Q12 PO ; Start 02/06/17 at 09:00; Status UNV Tamsulosin HCl (Flomax) 0.4 mg HS PO ; Start 02/06/17 at 21:00; Status UNV KRISTINA WHITNEY Feb 06, 2017 05:06
[2017-02-06] MEDS ORDERED: PANTOPRAZOLE 40 MG INJ IV SCH (06:00)
[2017-02-06] MEDS ORDERED: RANOLAZINE (SR) 500 MG TAB PO SCH (09:00)
[2017-02-06] MEDS ORDERED: PRASUGREL HCL 5 MG TABLET PO SCH (09:00)
[2017-02-06] MEDS: ASPIRIN 81 MG TAB PO SCH (09:37)
[2017-02-06] MEDS: CLOPIDOGREL 75 MG TAB PO SCH (09:38)
[2017-02-06] MEDS: ISOSORBIDE MONONITRATE(SR)60 MG TAB PO SCH (09:41)
[2017-02-06] MEDS: LISINOPRIL 10 MG TAB PO SCH (09:42)
[2017-02-06] MEDS: AMLODIPINE 10 MG TAB PO SCH (09:47)
[2017-02-06] MEDS ORDERED: morphine LIQ (10 MG/5 ML) CUP PO PRN (11:00)
[2017-02-06] MEDS ORDERED: morphine LIQ (20 MG/ML PO SYG) PO PRN ×3 (11:30→12:00)
[2017-02-06 12:15] LABS: IRON 18 ug/dl (35-150)
[2017-02-06 12:20] LABS: CREATINE KINASE 119 IU/L (23-200)
[2017-02-06 12:23] LABS: ALBUMIN 3.7 g/dl (3.3-4.9); ALBUMIN/GLOBULIN RATIO 1.6; BILIRUBIN,INDIRECT 0.3 mg/dl (0-1.1); BILIRUBIN,TOTAL 0.3 mg/dl (0.2-1.3); CALCIUM 8.9 mg/dl (8.4-10.2); CREATININE 1.07 mg/dl (0.61-1.24); POTASSIUM 3.6 mmol/L (3.5-5.1)
[2017-02-06 12:25] LABS: TOTAL IRON BINDING CAPACITY 411 ug/dl (241-421)
[2017-02-06 12:27] LABS: CK-MB 3.23 ng/ml (0.0-2.4); TROPONIN-I < 0.012 ng/ml (0.00-0.12)
[2017-02-06] MEDS: morphine LIQ (20 MG/ML PO SYG) PO PRN ×2 (14:45→22:55)
[2017-02-06 19:51] LABS: CREATINE KINASE 101 IU/L (23-200)
[2017-02-06 20:17] LABS: CK-MB 2.99 ng/ml (0.0-2.4); TROPONIN-I < 0.012 ng/ml (0.00-0.12)
--- NOTE | 2017-02-06 20:40 | RADRPT ---
Echocardiogram Report Patient Name: TEODORO CALVO Gender: Male Date: 1955 Study Date: 06-Feb-2017 [employer]umen Plant Operator: Amy Solorio [facility] Location: 5552 Ref. Physician: KRISTINA WHITNEY Quality: Good Procedures: Transthoracic echocardiogram with complete 2D, M-Mode, and doppler examination. Indications: Chest Pain, hx of CAD, multiple stents. 2D/M Mode Doppler Measurement Value Normal Ranges Measurement Value Normal Ranges LVIDd 2D 4.2 3.5 - 5.6 cm LUISA Vmax 1.8 cm2 LVIDs 2D 2.2 2.1 - 4.1 cm LUISA VTI 1.8 cm2 LVPWd 2D 1.1 0.6 - 1.1 cm AV Mean Yefri 1.4 m/sec IVSd 2D 1.0 0.6 - 1.1 cm AV Mean PG 9.4 mmHg AoR Diam 2D 2.9 2.0 - 3.7 cm AV Peak Yefri 2.3 m/sec EDV 2D 78.5 cm3 AV Peak PG 21.6 mmHg ESV 2D 10.8 cm3 AV VTI 42.9 cm LA Dimen 2D 3.5 2.3 - 4.0 cm AI Peak PG 64.6 mmHg LVOT Diam 2.0 cm AI Peak Yefri 4.0 m/sec AI PHT 487.1 msec LVOT Mean Yefri 0.9 m/sec LVOT Mean PG 3.7 mmHg LVOT Peak Yefri 1.4 m/sec LVOT Peak PG 7.6 mmHg LVOT VTI 31.7 cm MV E Peak Yefri 1.0 m/sec MV A Peak Yefri 0.8 m/sec MV E/A 1.2 MV Decel Time 222 msec MV Decel Warrick 4 MV E/A 1.2 TR Peak Yefri 2.6 m/sec TR Peak PG 27.7 mmHg RVSP 31.0 mmHg Findings Left Ventricle: Normal left ventricular systolic function. Normal left ventricular cavity size. Mild concentric left ventricular hypertrophy. Ejection fraction is visually estimated at 60 %. Tissue Doppler/Mitral Doppler indices are within normal limits. Right Ventricle: Normal right ventricular size. Normal right ventricular systolic function. Left Atrium: The left atrium is normal in size. Right Atrium: The right atrium is normal in size. Mitral Valve: Normal appearance of the mitral valve. Mild mitral annular calcification. Trace mitral regurgitation. Aortic Valve: Aortic valve Max velocity 2.32 m/sec. Max PG 21.60 mmHg. Mean PG 9.40 mmHg. Aortic valve area 2.30 cm2. Aortic sclerosis without stenosis. Mild to moderate aortic valve regurgitation. Tricuspid Valve: Normal appearance of the tricuspid valve. Estimated peak PA systolic pressure 31 mmHg. There is mild tricuspid regurgitation. Pulmonic Valve: Normal pulmonic valve appearance. Pericardium: Normal pericardium with no significant pericardial effusion. Aorta: Normal aortic root. IVC: Normal size and normal respiratory collapse consistent with normal right atrial pressure. Conclusions 1.Normal left ventricular systolic function. Normal left ventricular cavity size. Mild concentric left ventricular hypertrophy. Ejection fraction is visually estimated at 60 %. Tissue Doppler/Mitral Doppler indices are within normal limits. 2.Normal appearance of the mitral valve. Mild mitral annular calcification. Trace mitral regurgitation. 3.Aortic valve Max velocity 2.32 m/sec. Max PG 21.60 mmHg. Mean PG 9.40 mmHg. Aortic valve area 2.30 cm2. Aortic sclerosis without stenosis. Mild to moderate aortic valve regurgitation. 4.Normal appearance of the tricuspid valve. Estimated peak PA systolic pressure 31 mmHg. There is mild tricuspid regurgitation. Electronically Signed By: Matt Ellison 06-Feb-2017 20:39:30 -0700 Patient Name: TEODORO CALVO Study Date: 06-Feb-2017 [id number]
[2017-02-06] MEDS ORDERED: ATORVASTATIN 80 MG TAB PO SCH (21:00)
[2017-02-06] MEDS ORDERED: TAMSULOSIN (SR) 0.4 MG CAP PO SCH (21:00)
[2017-02-06] MEDS ORDERED: ONDANSETRON 4 MG TAB PO PRN (21:30)
[2017-02-06] MEDS: RANOLAZINE (SR) 500 MG TAB PO SCH (21:31)
[2017-02-07] VITALS: PULSE 64
[2017-02-07 00:06] VITALS: BP 143/73; RESP 20
[2017-02-07] MEDS ORDERED: morphine LIQ (20 MG/ML PO SYG) SL PRN (00:30)
[2017-02-07 04:00] VITALS: PULSE 61
[2017-02-07 04:11] VITALS: BP 100/53; RESP 19
[2017-02-07] MEDS ORDERED: PANTOPRAZOLE (EC) 40 MG TAB PO SCH (06:00)
--- NOTE | 2017-02-07 07:01 | CONS ---
DATE OF ADMISSION: 02/05/2017 DATE OF CONSULTATION: 02/06/2017 REASON FOR CONSULTATION: Chest pain, assess for acute coronary syndrome. REQUESTING PHYSICIAN: Dr. Whitney from the hospitalist service. HISTORY OF PRESENT ILLNESS: Mr. Mcneil is a 61-year-old male with history of coronary artery dise ase, status post multiple stents, 10 per patient, most recently in the last 3 to 6 months, leukemia, congestive heart failure with unknown EF, anemia, chronic kidney disease, and aortic aneurysm perfo ration who had initially presented to [facility] with complaints of chest pain. Per patient, he w as to undergo angiogram, but got cold feet and left the hospital. The patient then presented here, now stating that he has ongoing chest pain. Initially upon arrival, temperature 97.7, blood pressur e 149/67, pulse , respirations 20, saturating 98%. Patient's labs revealed a sodium of 141, po tassium 4.1, creatinine 1.0, BUN 29. Troponin negative. White blood count 16.4, hemoglobin 10.6, p latelet count of 278. INR of 1.0. The patient underwent a chest x-ray revealing no acute cardiopul monary abnormalities. The patient's electrocardiogram revealed normal sinus rhythm, incomplete righ t bundle branch block, nonspecific diffusely. The patient subsequently admitted to the floor and since admit to the floor, has had recurrent episodes of chest pain. PAST MEDICAL HISTORY: As above in HPI. MEDICATIONS CURRENTLY IN HOSPITAL: 1. Lipitor 80 mg at bedtime. 2. Flomax 0.4 mg at bedtime. 3. Morphine 5 q.4 p.r.n. 4. Norvasc 10 mg daily. 5. Aspirin 81 mg daily. 6. Carvedilol 12.5 mg p.o. b.i.d. 7. Plavix 75 mg daily. 8. Imdur 120 mg daily. 9. Prasugrel 5 mg daily. 10. Ranexa 5 mg q.12. 11. Zestril 10 mg daily. 12. Protonix 40 mg IV daily. 13. Zofran p.r.n. 14. Tylenol p.r.n. 15. Morphine p.r.n. ALLERGIES: 1. PENICILLIN. 2. SULFA. 3. IODINE. SOCIAL HISTORY: No tobacco, ETOH or illicit drug use. FAMILY HISTORY: No history of sudden cardiac or early CAD. REVIEW OF SYSTEMS: As above in HPI. CONSTITUTIONAL: No fevers, chills. PULMONARY: No current shortness of breath. CARDIOVASCULAR: Positive for chest pain. GASTROINTESTINAL: No vomiting. GENITOURINARY: No hematuria. MUSCULOSKELETAL: Degenerative joint disease. PSYCHIATRIC: The patient has depression. NEUROLOGIC: No documented CVA. PHYSICAL EXAMINATION VITAL SIGNS: Temperature of 97.7, blood pressure most recently 127/63, pulse 72, respiratory rate 1 8, satting 97%. GENERAL: The patient is alert, awake, complaining of substernal chest pain. NECK: JVP approximately 8 to 9 cm of water. CHEST: Fair air movement throughout. HEART: Regular rate and rhythm. Normal S1, S2. I/ systolic murmur, nondisplaced PMI. ABDOMEN: Positive bowel sounds, soft. EXTREMITIES: No pitting edema, 1+ pulses bilaterally, posterior tibial. LABORATORIES: As above in HPI but since admit the patient having a second troponin return negative for 2 negative troponins. Additionally, from today, sodium of 144, potassium 3.6, creatinine 1.0, BUN 27. IMAGING STUDIES: As above in HPI. No further imaging studies for my review at this time. ECG: As above in HPI. No further electrocardiograms for my review at this time. IMPRESSION: 1. Chest pain, assess for acute coronary syndrome. 2. Electrocardiogram, assess for acute coronary syndrome. 3. History of percutaneous transluminal coronary angioplasty and stent placement per patient x10, m ost recently 3 to 6 months prior. 4. Hypertension. 5. Dyslipidemia. 6. History of aortic aneurysm. 7. History of cardiomyopathy. RECOMMENDATIONS: 1. At this time, would maintain the patient on current antihypertensives with Carvedilol, Zestril a nd Norvasc. 2. Continue the patient's Imdur antianginal medication and Ranexa, which I will increase to 1000 q. 12 for its anginal effect. 3. Check a 2D echo to further assess patient's ejection fraction, wall motion and any major valve a bnormalities. 4. Would discontinue the patient's second antiplatelet agent, either prasugrel or Plavix, and kathy nue the patient's baby aspirin. 5. If patient rules out, then we will consider stress testing this patient versus left heart cathet erization to assess for the possibility of significant obstructive coronary artery disease perfecto st pain and subsequent admit to the hospital. Thank you for allowing me to take part in the care of this patient. I will continue to follow very c losely with you with further recommendations to be made as patient progresses through his inpatient hospital clinical course. Dictated By: MARIAMA RIVERO/COLEMAN Conf#: [id number] DID#: [id number] CC: KRISTINA WHITNEY MD;*EndCC*
[2017-02-07 07:55] LABS: BASOPHILS % 0.2 % (0.0-2.0); EOSINOPHILS # 0.1 10^3/ul (0.0-0.5); EOSINOPHILS % 1.9 % (0.0-7.0); HEMATOCRIT 33.1 % (42.0-52.0); HEMOGLOBIN 10.5 g/dl (14.0-18.0); LYMPHOCYTES # 0.8 10^3/ul (0.8-2.9); LYMPHOCYTES % 17.9 % (15.0-51.0); MEAN CORPUSCULAR HEMOGLOBIN 25.5 pg (29.0-33.0); MEAN CORPUSCULAR HGB CONC 31.7 g/dl (32.0-37.0); MEAN CORPUSCULAR VOLUME 80.3 fl (82.0-101.0); MEAN PLATELET VOLUME 9.2 fl (7.4-10.4); MONOCYTE # 0.6 10^3/ul (0.3-0.9); NEUTROPHIL # 2.8 10^3/ul (1.6-7.5); NEUTROPHILS % 65.5 % (39.0-77.0); PLATELET COUNT 175 10^3/UL (140-415); RED BLOOD COUNT 4.12 10^6/ul (4.70-6.10); RED CELL DISTRIBUTION WIDTH 14.9 % (11.5-14.5); WHITE BLOOD COUNT 4.3 10^3/ul (4.8-10.8)
[2017-02-07 08:23] LABS: ALBUMIN 3.5 g/dl (3.3-4.9); ALBUMIN/GLOBULIN RATIO 1.52; BILIRUBIN,INDIRECT 0.3 mg/dl (0-1.1); BILIRUBIN,TOTAL 0.3 mg/dl (0.2-1.3); CALCIUM 8.4 mg/dl (8.4-10.2); CREATININE 1.04 mg/dl (0.61-1.24); POTASSIUM 3.9 mmol/L (3.5-5.1); TOTAL PROTEIN 5.8 g/dl (6.1-8.1)
[2017-02-07 08:38] VITALS: PULSE 67
[2017-02-07 08:57] LABS: CHOL/HDL RATIO 3.3 RATIO; CHOLESTEROL 150 mg/dl (100-200); HDL CHOLESTEROL 45 mg/dl (30-78); MAGNESIUM 2.1 mg/dl (1.7-2.5); PHOSPHORUS 4.2 mg/dl (2.5-4.9); TRIGLYCERIDES 113 mg/dl (0-149)
[2017-02-07 09:12] LABS: TROPONIN-I < 0.012 ng/ml (0.00-0.12)
[2017-02-07] MEDS: RANOLAZINE (SR) 500 MG TAB PO SCH (09:22)
[2017-02-07] MEDS: ASPIRIN 81 MG TAB PO SCH (09:22)
[2017-02-07] MEDS: CLOPIDOGREL 75 MG TAB PO SCH (09:23)
[2017-02-07] MEDS: LISINOPRIL 10 MG TAB PO SCH (09:24)
[2017-02-07] MEDS: ISOSORBIDE MONONITRATE(SR)60 MG TAB PO SCH (09:24)
[2017-02-07] MEDS: AMLODIPINE 10 MG TAB PO SCH (09:25)
[2017-02-07 11:27] VITALS: BP 132/71; RESP 17
--- NOTE | 2017-02-07 18:12 | DS ---
Date/Time of Note Date/Time of Note DATE: 02/07/17 TIME: 18:12 Discharge Summary Admission/Discharge Info Admit Date/Time Feb 05, 2017 at 23:48 Discharge Date/Time Feb 07, 2017 at 11:46- pt signed out against medical advise Discharge Diagnosis #1 chest pain: Highly suspicious for ACS. Patient has extensive cardiac history and with his recent admission to [facility] for similar presentation I do feel like the patient is having cardiac related symptoms. At the current time his troponin first set is negative, will trend troponins. EKG is within acceptable values at this time with no acute ST or T-wave abnormalities. Morphine 2 every 2 for chest pain while monitoring blood pressure. If pain persists despite morphine may need to upgrade the patient to the ICU and initiate a nitroglycerin drip. Patient did not tolerate Nitropaste in the past that he reports. Will consult cardiology. Will obtain an echocardiogram. #2 coronary artery disease: Extensive cardiac history with stents 10 according to the patient. The current time will resume patient's home medications of aspirin/plavix/statin/beta-bonifacio/STEPH inhibitor. Patient has carvedilol and metoprolol on his med rec as well as Effient and Plavix at the current time I will just put him on carvedilol and Plavix and defer further medication management to cardiology. #3 chronic kidney disease: At the current time patient's creatinine is 1.03. Will avoid nephrotoxic agents. Will monitor renal function. #4 leukocytosis: Currently patient is afebrile. There are no overt signs of any infection. This could be stress related. Will continue to monitor this. #5 microcytic anemia: Check iron panel. #6 history of CHF: We will resume home medications. At the current time patient does not appear to be volume overloaded. #7 history of hairy cell leukemia: In remission #8 ascending aortic aneurysm: Patient Condition: Good Consults cardiology consult Procedures None Hx of Present Illness cc: left sided chest pain This 61-year-old male presents to the emergency room for chest pain that he has had intermittently on and off for the past 2 days. The patient states that he does have a history of 10 cardiac stents, hypertension, hyperlipidemia and states that he came to the ER today for evaluation of his symptoms. He describes his pain as a pressure-like sensation in the center of the chest with no radiation associated with mild shortness of breath however no nausea, no vomiting and no diaphoresis. He states that he was at [facility] approximately 2 days ago and there he was scheduled to have a cardiac catheterization however the patient was hesitant to receive the procedure so the patient was subsequently discharged. At the current time patient states that he still does have on and off left-sided chest pain since he has come to the ER. He did receive some relief from nitroglycerin sublingual however he had greater relief from morphine IV. In the past he has used Nitropaste but that has not helped him, nitroglycerin drip has given him relief. He states that while he was at [facility] he did not have any elevated troponins. Allergies: Penicillin, sulfa, contrast dye, iodine Medications: See [facility] Course pt as ruled out for ACS. he was started on Rx for CHF, ACS- he signed out AMA on 02/07/2017. he has been explained about risks and complications of signing out AMA- including possible . he understood it and verbalized understanding.ultimately he signed out AMA. Home Meds Active Scripts Ibuprofen* (Motrin*) 600 Mg Tab, 600 MG PO Q8, #30 TAB Prov:LISAKailaLAYO HENLEY 05/22/15 Reported Medications Ranolazine* (Ranexa*) 500 Mg Tab.sr.12h, 500 MG PO Q12, TAB 02/05/17 Metoprolol Tartrate* (Lopressor*) 100 Mg Tablet, 100 MG PO DAILY, #60 TAB 02/05/17 Lisinopril* (Lisinopril*) 10 Mg Tablet, 10 MG PO DAILY, #30 TAB 02/05/17 Clopidogrel Bisulfate* (Clopidogrel Bisulfate*) 75 Mg Tablet, 75 MG PO DAILY, # 30 TAB 02/05/17 Isosorbide Mononitrate* (Isosorbide Mononitrate*) 120 Mg Tab.sr.24h, 120 MG PO DAILY, TAB.SA 02/05/17 Atorvastatin* (Atorvastatin*) 80 Mg Tablet, 80 MG PO HS, TAB 10/27/14 Amlodipine Besylate* (Amlodipine Besylate*) 10 Mg Tablet, 10 MG PO DAILY, TAB 10/27/14 Aspirin* (Aspirin* Chew) 81 Mg Tab.chew, 81 MG PO DAILY, TAB.CHEW 10/27/14 Nitroglycerin* (Nitroglycerin* SL) 0.4 Mg Tab.subl, 0.4 MG SL Q5MIN Y for CHEST PAIN, BOTTLE 10/27/14 Carvedilol* (Carvedilol*) 12.5 Mg Tablet, 12.5 MG PO BID, TAB 10/27/14 Prasugrel Hydrochloride* (Effient*) 5 Mg Tablet, 5 MG PO DAILY, TAB 10/27/14 Tamsulosin Hcl* (Tamsulosin Hcl*) 0.4 Mg Cap.er.24h, 0.4 MG PO HS, CAP 10/27/14 Follow-up Plan he was advised by Nursing staff to come back to ED if c/o chest pain. he is advsied to follow up with his PCP and cardiology isa. Primary Care Provider Care Physician No Primary Time spent on discharge: < 30 minutes Pending Labs Laboratory Tests Test 02/06/17 18:48 02/07/17 07:37 Creatine Kinase 101IU/L (23-200) Creatine Kinase Index 3.0 Creatinine Kinase MB (Mass) 2.99ng/ml (0.0-2.4) Troponin I < 0.012ng/ml (0.00-0.12) < 0.012ng/ml (0.00-0.12) White Blood Count 4.310^3/ul (4.8-10.8) Red Blood Count 4.1210^6/ul (4.70-6.10) Hemoglobin 10.5g/dl (14.0-18.0) Hematocrit 33.1% (42.0-52.0) Mean Corpuscular Volume 80.3fl (82.0-101.0) Mean Corpuscular Hemoglobin 25.5pg (29.0-33.0) Mean Corpuscular Hemoglobin Concent 31.7g/dl (32.0-37.0) Red Cell Distribution Width 14.9% (11.5-14.5) Platelet Count 12985^3/UL (140-415) Mean Platelet Volume 9.2fl (7.4-10.4) Neutrophils % 65.5% (39.0-77.0) Lymphocytes % 17.9% (15.0-51.0) Monocytes % 14.0% (0.0-11.0) Eosinophils % 1.9% (0.0-7.0) Basophils % 0.2% (0.0-2.0) Nucleated Red Blood Cells % 0.0/100WBC (0.0-0.0) Neutrophils # 2.810^3/ul (1.6-7.5) Lymphocytes # 0.810^3/ul (0.8-2.9) Monocytes # 0.610^3/ul (0.3-0.9) Eosinophils # 0.110^3/ul (0.0-0.5) Basophils # 0.010^3/ul (0.0-0.1) Nucleated Red Blood Cells # 0.010^3/ul (0.0-0.0) Sodium Level 142mmol/L (135-144) Potassium Level 3.9mmol/L (3.5-5.1) Chloride Level 106mmol/L (97-110) Carbon Dioxide Level 26mmol/L (21-31) Anion Gap 14 (8-16) Blood Urea Nitrogen 26mg/dl (7-20) Creatinine 1.04mg/dl (0.61-1.24) Glucose Level 89mg/dl (70-220) Calcium Level 8.4mg/dl (8.4-10.2) Phosphorus Level 4.2mg/dl (2.5-4.9) Magnesium Level 2.1mg/dl (1.7-2.5) Total Bilirubin 0.3mg/dl (0.2-1.3) Direct Bilirubin 0.00mg/dl (0.00-0.20) Indirect Bilirubin 0.3mg/dl (0-1.1) Aspartate Amino Transf (AST/SGOT) 18IU/L (15-46) Alanine Aminotransferase (ALT/SGPT) 35IU/L (13-69) Alkaline Phosphatase 85IU/L (42-121) Total Protein 5.8g/dl (6.1-8.1) Albumin 3.5g/dl (3.3-4.9) Globulin 2.30g/dl (1.3-3.2) Albumin/Globulin Ratio 1.52 Triglycerides Level 113mg/dl (0-149) Cholesterol Level 150mg/dl (100-200) LDL Cholesterol, Calculated 82mg/dl HDL Cholesterol 45mg/dl (30-78) Cholesterol/HDL Ratio 3.3RRANDY RODRIGEZ MD Feb 07, 2017 18:12 Cholesterol/HDL Ratio 3.3RRANDY RODRIGEZ MD Feb 07, 2017 18:12
== END 2017-02-07 11:46 | disposition left against medical advice (07) ==
LOC: E/R 21:14 → MS4 23:48 → TEL 02-06 20:36
PROVIDERS: ADMIT Family Medicine; ATTEND Family Medicine
DX: R07.9 Chest pain, unspecified (principal); I25.10 Atherosclerotic heart disease of native coronary artery without angina pectoris; Z98.61 Coronary angioplasty status; I12.9 Hypertensive chronic kidney disease with stage 1 through stage 4 chronic kidney disease, or unspecified chronic kidney disease; N18.9 Chronic kidney disease, unspecified; D72.829 Elevated white blood cell count, unspecified; D50.9 Iron deficiency anemia, unspecified; I50.9 Heart failure, unspecified; C91.41 Hairy cell leukemia, in remission; I71.2 Thoracic aortic aneurysm, without rupture; Z88.0 Allergy status to penicillin; Z88.2 Allergy status to sulfonamides; N40.0 Benign prostatic hyperplasia without lower urinary tract symptoms; Z83.3 Family history of diabetes mellitus; Z82.49 Family history of ischemic heart disease and other diseases of the circulatory system; Z79.82 Long term (current) use of aspirin; Z53.21 Procedure and treatment not carried out due to patient leaving prior to being seen by health care provider
CPT/HCPCS: 36415; 71010; 80048; 80053; 80061; 82550; 82553; 82728; 83036; 83540; 83735; 84100; 84443; 84484; 85025; 85610; 85730; 93005; 93306; 96374; 96375; 96376; 99285; C9113; G0378; J2270; J2405; J7030

== ENCOUNTER 2018-07-27 18:10 | Emergency (ER) | payer MEDICARE, OTHER ==
[~2018-07-27] VITALS: Ht 167.6 cm; Wt 90.9 kg
[~2018-07-27 18:10] MED LIST changes: +ASPI-903 PO; -ASPI81TA3 PO; +ATOR-2 PO; -ATOR80TA75 PO; +CLOP75TA19 PO; -DIAZ-90 PO; -FER325 PO; -FURO-110 PO; +ISOS120T15 PO; +LISI10TA2 PO; -LISI2.5T59 PO; +METO-407 PO; -NAPR-260 PO; +RANO500T2 PO
[2018-07-27 18:23] VITALS: Ht 167.6 cm; Wt 90.9 kg
[2018-07-27] MEDS ORDERED: LORAZEPAM 1 MG TAB PO ONE (21:30)
--- NOTE | 2018-07-27 22:15 | ERD ---
ER Documentation Chief Complaint Chief Complaint chest pain x 4 days. patient with a service dog HPI This is a 62-year-old man with an extensive cardiac history presenting with 4 days of constant nonradiating nonexertional substernal chest pain. He was discharged from [facility] a few hours ago after admission there for chest pain, workup while there was unrevealing and he also underwent consultation with in-house bilingual receptionist who spoke to him and gave him recommendations, ultimately the patient was discharged so he presents here complaining of anxiety and continued pain. Patient wants something to help control his pain, although he has had this pain on a regular basis and has had it for many years. He denies shortness of breath, no cough, no fevers or chills, no vomiting or diarrhea. ROS All systems reviewed and are negative except as per history of present illness. Medications Home Meds Active Scripts Ibuprofen* (Motrin*) 600 Mg Tab, 600 MG PO Q8, #30 TAB Prov:LAYO PAN DO 05/22/15 Reported Medications Ranolazine* (Ranexa*) 500 Mg Tab.sr.12h, 500 MG PO Q12, TAB 02/05/17 Metoprolol Tartrate* (Lopressor*) 100 Mg Tablet, 100 MG PO DAILY, #60 TAB 02/05/17 Lisinopril* (Lisinopril*) 10 Mg Tablet, 10 MG PO DAILY, #30 TAB 02/05/17 Clopidogrel Bisulfate* (Clopidogrel Bisulfate*) 75 Mg Tablet, 75 MG PO DAILY, #30 TAB 02/05/17 Isosorbide Mononitrate* (Isosorbide Mononitrate*) 120 Mg Tab.sr.24h, 120 MG PO DAILY, TAB.SA 02/05/17 Atorvastatin* (Atorvastatin*) 80 Mg Tablet, 80 MG PO HS, TAB 10/27/14 Amlodipine Besylate* (Amlodipine Besylate*) 10 Mg Tablet, 10 MG PO DAILY, TAB 10/27/14 Aspirin* (Aspirin* Chew) 81 Mg Tab.chew, 81 MG PO DAILY, TAB.CHEW 10/27/14 Nitroglycerin* (Nitroglycerin* SL) 0.4 Mg Tab.subl, 0.4 MG SL Q5MIN PRN for CHEST PAIN, BOTTLE 10/27/14 Carvedilol* (Carvedilol*) 12.5 Mg Tablet, 12.5 MG PO BID, TAB 10/27/14 Prasugrel Hydrochloride* (Effient*) 5 Mg Tablet, 5 MG PO DAILY, TAB 10/27/14 Tamsulosin Hcl* (Tamsulosin Hcl*) 0.4 Mg Cap.er.24h, 0.4 MG PO HS, CAP 10/27/14 Allergies Allergies: Coded Allergies: Penicillins (Unverified Allergy, Unknown, SHORTNESS OF BREATH, 02/05/17) Sulfa (Sulfonamide Antibiotics) (Unverified Allergy, Unknown, " GIVES ME TEMPERATURE.", 02/05/17) iodine (Unverified Allergy, Unknown, 02/05/17) PMhx/Soc Chronic recurrent chest pain, history of opioid abuse and dependence, benzodiazepine dependence, anxiety, coronary artery disease status post multiple coronary stents, CHF, chronic peripheral edema, ascending aortic aneurysm History of Surgery: Yes Anesthesia Reaction: No Hx Neurological Disorder: No Hx Respiratory Disorders: No Hx Cardiac Disorders: Yes Hx Psychiatric Problems: No Hx Miscellaneous Medical Probl: No Hx Alcohol Use: No Hx Substance Use: No Hx Tobacco Use: No Smoking Status: Never smoker FmHx Family History: No diabetes Physical Exam Vitals Vital Signs Date Temp Pulse Resp B/P (MAP) Pulse Ox O2 O2 Flow FiO2 Time Delivery Rate 07/27/18 98.2 70 18 180/82 100 18:23 (114) Physical Exam Const: Mildly anxious, afebrile Head: Atraumatic Eyes: Normal Conjunctiva ENT: Normal External Ears, Nose and Mouth. Neck: Full range of motion. No meningismus. Resp: Clear to auscultation bilaterally Cardio: Regular rate and rhythm, no murmurs Abd: Soft, non tender, non distended. Skin: No petechiae or rashes Back: No midline or flank tenderness Ext: 2+ pitting edema in the lower extremities bilaterally, calves symmetrical Neur: Awake and alert x3, no focal deficits or facial asymmetry, pupils equal round reactive to light Psych: Anxious Results 24 hrs Laboratory Tests Test 07/27/18 21:44 Troponin I < 0.012 ng/ml Current Medications Medications Dose Sig/Chava Start Time Status Last (Trade) Ordered Route PRN Stop Time Admin Dose Reason Admin Lorazepam 1 mg ONCE ONCE 07/27/18 DC 07/27/18 (Ativan) PO 21:30 21:40 07/27/18 21:31 Procedures/MDM Patient placed on athletic monitor rhythm strip revealed a sinus rhythm at about 60 bpm. Patient was afebrile. EKG performed, read by me revealed a normal sinus rhythm at 64 bpm, left axis deviation, right ventricular conduction delay QRS duration 102 ms, no concerning ST elevations or depressions noted I administered lorazepam 1 mg p.o. x1 and Toradol 30 mg IM x1 for patient's symptoms. Troponin was negative Patient's initial hypertension improved and his pain and anxiety have resolved he feels better and will be discharged to follow-up with PMD and bilingual receptionist as an outpatient. Differential diagnoses considered, included but not limited to acute coronary syndrome, pulmonary embolism, aortic dissection, abdominal aortic aneurysm, sepsis, stroke, meningitis, encephalitis, pneumonia, appendicitis, cholecystitis, bowel obstruction, pyelonephritis, nephrolithiasis, cystitis, as well as metabolic, hematologic, and electrolyte abnormalities. As well as abscess, cellulitis, fractures, and dislocations. Patient feels much better at this time, and vital signs are normal, symptoms have improved. I did give strict instructions to return to the ED if symptoms continue or worsen, patient will otherwise follow-up with primary care physician. Patient understood instructions and agreed to plan. Disclaimer: Inadvertent spelling and grammatical errors are likely due to EHR/dictation software use and do not reflect on the overall quality of patient care. Also, please note that the electronic time recorded on this note does not necessarily reflect the actual time of the patient encounter. Departure Diagnosis: Primary Impression: Hypertension Hypertension type: essential hypertension Qualified Codes: I10 - Essential (primary) hypertension Additional Impressions: Peripheral edema Stable angina Condition: Good HARRIET NINA MD Jul 27, 2018 22:14
[2018-07-27] MEDS ORDERED: KETOROLAC 30 MG INJ IM STA (22:54)
[2018-07-27] MEDS ORDERED: KETOROLAC 15 MG INJ IV STA (22:55)
[2018-07-27] MEDS: IBUPROFEN 600 MG TAB PO ONE ×2 (22:59→23:05)
[2018-07-27 23:15] VITALS: BP 134/79; PULSE 66; RESP 18
== END 2018-07-27 23:18 | disposition home or self-care (01) ==
LOC: E/R 18:10
DX: I10 Essential (primary) hypertension (principal); R60.0 Localized edema; I20.9 Angina pectoris, unspecified; Z79.82 Long term (current) use of aspirin
CPT/HCPCS: 84484; 93005; 96374; 99284; J1885

== ENCOUNTER 2018-07-28 00:45 | Emergency (ER) | payer MEDICARE ==
[~2018-07-28] VITALS: Ht 167.6 cm; Wt 91.7 kg
[2018-07-28 00:47] VITALS: Ht 167.6 cm; Wt 91.7 kg
[2018-07-28 06:13] VITALS: BP 139/90; PULSE 77; RESP 18
--- NOTE | 2018-08-17 17:55 | ERD ---
ER Documentation Chief Complaint Chief Complaint came back x same thing - L sided CP radiatng to L arm HPI This is a 62-year-old male comes in with complaints of left-sided chest pain. He was seen and discharged. Patient has no new complaints. He he is openly stated that "I does need a place to stay " ROS All systems reviewed and are negative except as per history of present illness. Medications Home Meds Active Scripts Ibuprofen* (Motrin*) 600 Mg Tab, 600 MG PO Q8, #30 TAB Prov:LAYO PAN 05/22/15 Reported Medications Ranolazine* (Ranexa*) 500 Mg Tab.sr.12h, 500 MG PO Q12, TAB 02/05/17 Metoprolol Tartrate* (Lopressor*) 100 Mg Tablet, 100 MG PO DAILY, #60 TAB 02/05/17 Lisinopril* (Lisinopril*) 10 Mg Tablet, 10 MG PO DAILY, #30 TAB 02/05/17 Clopidogrel Bisulfate* (Clopidogrel Bisulfate*) 75 Mg Tablet, 75 MG PO DAILY, #30 TAB 02/05/17 Isosorbide Mononitrate* (Isosorbide Mononitrate*) 120 Mg Tab.sr.24h, 120 MG PO DAILY, TAB.SA 02/05/17 Atorvastatin* (Atorvastatin*) 80 Mg Tablet, 80 MG PO HS, TAB 10/27/14 Amlodipine Besylate* (Amlodipine Besylate*) 10 Mg Tablet, 10 MG PO DAILY, TAB 10/27/14 Aspirin* (Aspirin* Chew) 81 Mg Tab.chew, 81 MG PO DAILY, TAB.CHEW 10/27/14 Nitroglycerin* (Nitroglycerin* SL) 0.4 Mg Tab.subl, 0.4 MG SL Q5MIN PRN for CHEST PAIN, BOTTLE 10/27/14 Carvedilol* (Carvedilol*) 12.5 Mg Tablet, 12.5 MG PO BID, TAB 10/27/14 Prasugrel Hydrochloride* (Effient*) 5 Mg Tablet, 5 MG PO DAILY, TAB 10/27/14 Tamsulosin Hcl* (Tamsulosin Hcl*) 0.4 Mg Cap.er.24h, 0.4 MG PO HS, CAP 10/27/14 Allergies Allergies: Coded Allergies: Penicillins (Unverified Allergy, Unknown, SHORTNESS OF BREATH, 02/05/17) Sulfa (Sulfonamide Antibiotics) (Unverified Allergy, Unknown, " GIVES ME TEMPERATURE.", 02/05/17) iodine (Unverified Allergy, Unknown, 02/05/17) PMhx/Soc History of Surgery: Yes Anesthesia Reaction: No Hx Neurological Disorder: No Hx Respiratory Disorders: No Hx Cardiac Disorders: Yes Hx Psychiatric Problems: No Hx Miscellaneous Medical Probl: No Hx Alcohol Use: No Hx Substance Use: No Hx Tobacco Use: No Smoking Status: Never smoker Physical Exam Physical Exam Const: No acute distress Head: Atraumatic Eyes: Normal Conjunctiva ENT: Normal External Ears, Nose and Mouth. Neck: Full range of motion. No meningismus. Resp: Clear to auscultation bilaterally Cardio: Regular rate and rhythm, no murmurs Abd: Soft, non tender, non distended. Normal bowel sounds Skin: No petechiae or rashes Back: No midline or flank tenderness Ext: No cyanosis, or edema Neur: Awake and alert Psych: Normal Mood and Affect Procedures/MDM Medical decision: Patient is a social work consult placed. Signed out to oncoming MD Departure Diagnosis: Primary Impression: Hospital discharge follow-up Condition: Stable Patient Instructions: Chest Pain, Uncertain Cause BLAKE RUEDA August 17, 2018 17:55
== END 2018-07-28 06:15 | disposition home or self-care (01) ==
LOC: E/R 00:45
DX: R07.9 Chest pain, unspecified (principal); Z79.01 Long term (current) use of anticoagulants; Z79.82 Long term (current) use of aspirin
CPT/HCPCS: 99282

== ENCOUNTER 2018-08-05 22:18 | Inpatient (IN) | payer MEDICAID, MEDICARE, OTHER ==
[~2018-08-05] VITALS: Wt 90.9 kg
[2018-08-05] MEDS ORDERED: NITROGLYCERIN 2% 1 GM OINT PKT TD STA (22:58)
[2018-08-05] MEDS ORDERED: ASPIRIN 325 MG TAB PO STA (22:58)
--- NOTE | 2018-08-05 23:08 | ERD ---
ER Documentation Chief Complaint Chief Complaint CP X'S 3 DAYS HPI This is a 62-year-old gentleman with a history of extensive cardiac disease and upwards of 7 stents. Patient presents with intermittent chest pain. It should be noted that the patient is a high utilizer of the emergency room with 55 visits in the past 12 months at local emergency departments including 14 different facilities. Most recently the patient was seen on July 28 at [facility]. Patient states that he still has substernal chest pressure relieved by nitroglycerin. The pain is approximately 2 out of 10 currently. He states that he was supposed to have an angiogram today at [facility] but could not because of social issues. Patient states that he is a resident of [place] and does not see a regular instructional paraprofessional here. The patient does have a printout of a recent lexicon cardiac scan on July 30 at an outside facility that is abnormal. ROS All systems reviewed and are negative except as per history of present illness. Medications Home Meds Active Scripts Ibuprofen* (Motrin*) 600 Mg Tab, 600 MG PO Q8, #30 TAB Prov:LAYO PAN DO 05/22/15 Reported Medications Ranolazine* (Ranexa*) 500 Mg Tab.sr.12h, 500 MG PO Q12, TAB 02/05/17 Metoprolol Tartrate* (Lopressor*) 100 Mg Tablet, 100 MG PO DAILY, #60 TAB 02/05/17 Lisinopril* (Lisinopril*) 10 Mg Tablet, 10 MG PO DAILY, #30 TAB 02/05/17 Clopidogrel Bisulfate* (Clopidogrel Bisulfate*) 75 Mg Tablet, 75 MG PO DAILY, #30 TAB 02/05/17 Isosorbide Mononitrate* (Isosorbide Mononitrate*) 120 Mg Tab.sr.24h, 120 MG PO DAILY, TAB.SA 02/05/17 Atorvastatin* (Atorvastatin*) 80 Mg Tablet, 80 MG PO HS, TAB 10/27/14 Amlodipine Besylate* (Amlodipine Besylate*) 10 Mg Tablet, 10 MG PO DAILY, TAB 10/27/14 Aspirin* (Aspirin* Chew) 81 Mg Tab.chew, 81 MG PO DAILY, TAB.CHEW 10/27/14 Nitroglycerin* (Nitroglycerin* SL) 0.4 Mg Tab.subl, 0.4 MG SL Q5MIN PRN for CHEST PAIN, BOTTLE 10/27/14 Carvedilol* (Carvedilol*) 12.5 Mg Tablet, 12.5 MG PO BID, TAB 10/27/14 Prasugrel Hydrochloride* (Effient*) 5 Mg Tablet, 5 MG PO DAILY, TAB 10/27/14 Tamsulosin Hcl* (Tamsulosin Hcl*) 0.4 Mg Cap.er.24h, 0.4 MG PO HS, CAP 10/27/14 Allergies Allergies: Coded Allergies: Penicillins (Unverified Allergy, Unknown, SHORTNESS OF BREATH, 02/05/17) Sulfa (Sulfonamide Antibiotics) (Unverified Allergy, Unknown, " GIVES ME TEMPERATURE.", 02/05/17) iodine (Unverified Allergy, Unknown, 02/05/17) PMhx/Soc History of Surgery: Yes Anesthesia Reaction: No Hx Neurological Disorder: No Hx Respiratory Disorders: Yes (bronchitis) Hx Cardiac Disorders: Yes (HTN,stable angina) Hx Psychiatric Problems: Yes (anxiety) Hx Miscellaneous Medical Probl: Yes (hematochezia,costochondritis,flank pain,p eripheral edema,cellulitis,sciatic) Hx Alcohol Use: No Hx Substance Use: No Hx Tobacco Use: No Smoking Status: Never smoker FmHx Family History: coronary disease; No diabetes Physical Exam Vitals Vital Signs Date Temp Pulse Resp B/P (MAP) Pulse Ox O2 O2 Flow FiO2 Time Delivery Rate 08/05/18 98.8 100 18 163/72 98 22:34 (102) Physical Exam General: Well developed, well nourished, no acute distress Head: Normocephalic, atraumatic. Eyes: Pupils equally reactive, EOM intact ENT: Moist mucous membranes Neck: Supple, no lymphadenopathy Respiratory: Lungs clear bilaterally, no distress Cardiovascular: RRR, no murmurs, rubs, or gallops Abdominal: Soft, non-tender, non-distended, no peritoneal signs : Deferred MSK: No edema, no unilateral swelling, 5/5 strength Neurologic: Alert and oriented, moving all extremities, normal speech, no focal weakness, no cerebellar signs Skin: No rash Psych: Normal mood Result Diagram: 08/05/18 9169 08/05/18 2338 Results 24 hrs Laboratory Tests Test 08/05/18 23:39 White Blood Count 6.7 10^3/ul Red Blood Count 4.48 10^6/ul Hemoglobin 10.2 g/dl Hematocrit 34.2 % Mean Corpuscular Volume 76.3 fl Mean Corpuscular Hemoglobin 22.8 pg Mean Corpuscular Hemoglobin Concent 29.8 g/dl Red Cell Distribution Width 18.2 % Platelet Count 213 10^3/UL Mean Platelet Volume 9.3 fl Immature Granulocytes % 0.100 % Neutrophils % 74.6 % Lymphocytes % 9.4 % Monocytes % 13.5 % Eosinophils % 2.1 % Basophils % 0.3 % Nucleated Red Blood Cells % 0.0 /100WBC Immature Granulocytes # 0.010 10^3/ul Neutrophils # 5.0 10^3/ul Lymphocytes # 0.6 10^3/ul Monocytes # 0.9 10^3/ul Eosinophils # 0.1 10^3/ul Basophils # 0.0 10^3/ul Nucleated Red Blood Cells # 0.0 10^3/ul Sodium Level 137 mmol/L Potassium Level 4.4 mmol/L Chloride Level 102 mmol/L Carbon Dioxide Level 26 mmol/L Anion Gap 9 Blood Urea Nitrogen 21 mg/dl Creatinine 1.06 mg/dl Est Glomerular Filtrat Rate mL/min > 60 mL/min Glucose Level 104 mg/dl Calcium Level 9.4 mg/dl Troponin I < 0.012 ng/ml Current Medications Medications Dose Sig/Chava Start Time Status Last (Trade) Ordered Route PRN Stop Time Admin Dose Reason Admin Aspirin 325 mg ONCE STAT 08/05/18 DC 08/05/18 (Aspirin) PO 22:58 23:56 08/05/18 22:59 1 inch ONCE STAT 08/05/18 DC 08/05/18 Nitroglycerin TD 22:58 23:56 08/05/18 22:59 (Nitroglyceri n 2% Oint) Ondansetron 4 mg ER BRIDGE 08/06/18 HCl (Zofran PRN IV 01:00 08/07/18 Inj) NAUSEA/VOMITI 00:59 NG 650 mg ER BRIDGE 08/06/18 Acetaminophen PRN PO 01:00 08/07/18 (Tylenol .MILD PAIN 00:59 Tab) 1-3 OR TEMP Procedures/MDM EKG, MONITORS, & DIAGNOSTIC IMAGING: Nuclear medicine myocardial lexicon stress test on 07/30/2018 at outside facility. Impression: Partially reversible defect proximal inferior wall concerning for infarct with component of ischemia. Diminishment in the lateral/inferior lateral myocardium and anterior septal wall predominantly resolves on the prone indicating artifact. Study mildly limited, CT attenuation correlation cannot be obtained. Decreased wall motion seen proximal inferior myocardium. The left ventricular ejection fraction is normal at 65%. EKG: I reviewed and interpreted a 12-lead EKG. Rhythm: Normal sinus rhythm ST Changes: No contiguous ST segment elevations T waves: No contiguous T wave inversions Impression: No evidence of acute cardiac ischemia Repeat EKG: EKG: I reviewed and interpreted a 12-lead EKG. Rhythm: Normal sinus rhythm ST Changes: No contiguous ST segment elevations T waves: No contiguous T wave inversions Impression: No evidence of acute cardiac ischemia Chest x-ray: I reviewed and interpreted a 1 view of the chest Mediastinum: No enlargement Cardiac silhouette: No cardiomegaly Airspace: Clear lung junior bilaterally without evidence of pneumothorax Bones: No evidence of fracture PROCEDURES: None LAB INTERPRETATION: * Negative troponin MEDICAL DECISION MAKING: The patient's history, physical exam and clinical presentation is concerning for possible cardiogenic etiology and acute coronary syndrome. Additionally in the setting of recent abnormal stress test the patient is at significant risk for cardiac ischemia. Based on the patient's clinical exam and history and risk factors, I have a much lower clinical concern for pulmonary embolism, acute aortic dissection, pneumothorax, pneumonia, cardiac tamponade HEART Score: Greater than 4 MACE Rate: 16.6% Shared Decision Making: We had a conversation regarding risk stratification, MACE rate, and the risks, benefits, alternatives of disposition planning options. Disposition planning: Admission ER COURSE: * Aspirin, nitroglycerin provided * Negative troponin. Chest pain improved. CONSULTATION: None DISPOSITION PLAN: Telemetry admission for management of chest pain to rule out acute coronary syndrome, serial enzymes, risk stratification and consideration of provocative testing CONSULTATION: Accepting care team and consultations: I discussed the current laboratory data, diagnostic imaging and emergency care provided. Admitting team: Dr. Kelley Admitting team indication: Insurance directed Departure Diagnosis: Primary Impression: Chest pain Chest pain type: unspecified Qualified Codes: R07.9 - Chest pain, unspecified Condition: Stable ERIC YADAV MD Aug 05, 2018 23:07
[2018-08-06] VITALS (7 sets, daily range): BP systolic 119–154; BP diastolic 50–79; PULSE 72–99; RESP 18–20
[2018-08-06] MEDS ORDERED: ACETAMINOPHEN 325 MG TAB PO PRN ×2 (01:00→02:00)
[2018-08-06] MEDS ORDERED: ONDANSETRON 4 MG INJ IV PRN ×2 (01:00→02:00)
[2018-08-06] MEDS: SOD CHLORIDE 0.9% 1,000 ML IV SCH ×2 (01:45→14:02)
[2018-08-06] MEDS ORDERED: NITROGLYCERIN (SL) 0.4 MG TAB SL PRN (02:00)
[2018-08-06] MEDS ORDERED: NACL 0.9% 3 ML SYG IV SCH (02:00)
[2018-08-06] MEDS ORDERED: DOCUSATE SODIUM 100 MG CAP PO PRN (02:00)
[2018-08-06] MEDS ORDERED: BISACODYL (EC) 5 MG TAB PO PRN (02:00)
[2018-08-06] MEDS ORDERED: KETOROLAC 15 MG INJ IV STA (02:23)
--- NOTE | 2018-08-06 04:44 | HP ---
Date/Time of Note Date/Time of Note DATE: 08/06/18 TIME: 04:44 Assessment/Plan VTE Prophylaxis SCD applied (from Nsg): Yes Pharmacological prophylaxis: NA/contraindicated Pharm contraindication: low risk/ambulating Lines/Catheters IV Catheter Type (from Nrsg): Saline Lock Assessment/Plan Hospital Course This is a 62-year-old male being admitted to the telemetry floor for observation for: #1 chest pain/unstable angina: Patient does have multiple risk factors. Patient also apparently has a outpatient negative stress test and was supposed to be scheduled for a cardiac catheterization performed at [facility] today. I am unsure of the authenticity of all this, however given that apparently he had his negative stress test there is concern. But will trend cardiac enzymes x3, will check an echocardiogram. Will consult cardiology . I will keep him n.p.o. at the current time in case patient does not need to go to cardiac catheterization today. PRN nitro. Will withhold any narcotics at the current time #2 coronary artery disease: Extensive cardiac history with stents 10 according to the patient. The current time will resume patient's home medications of aspirin/plavix/statin/beta-bonifacio/STEPH inhibitor. We will need to confirm patient's home medications, he has metoprolol and carvedilol in his EMR, I will continue him on carvedilol. We will need to discuss with cardiology regarding continuation of Effient. #3 chronic kidney disease: At the current time patient's creatinine is 1.06. Will avoid nephrotoxic agents. Will monitor renal function. #5 microcytic anemia: Check iron panel. #6 history of CHF: We will resume home medications. At the current time patient does not appear to be volume overloaded. #7 history of hairy cell leukemia: In remission #8 possible drug-seeking behavior: Patient has been going to multiple ERs over the last 12 months. he also was requesting narcotic medication in the emergency department. At the current time there is some concern for drug- seeking behavior. I will withhold any narcotics at the current time. #9 DVT GI prophylaxis: SCDs, Protonix Further treatment strategy will be implemented as per the clinical course Result Diagram: 08/05/18 2331 08/05/18 2339 Results 24hrs Laboratory Tests Test 4/30/19 23:39 White Blood Count 6.7 # Red Blood Count 4.48 L Hemoglobin 10.2 L Hematocrit 34.2 L Mean Corpuscular Volume 76.3 L Mean Corpuscular Hemoglobin 22.8 L Mean Corpuscular Hemoglobin Concent 29.8 L Red Cell Distribution Width 18.2 #H Platelet Count 213 # Mean Platelet Volume 9.3 Immature Granulocytes % 0.100 Neutrophils % 74.6 Lymphocytes % 9.4 L Monocytes % 13.5 H Eosinophils % 2.1 Basophils % 0.3 Nucleated Red Blood Cells % 0.0 Immature Granulocytes # 0.010 Neutrophils # 5.0 Lymphocytes # 0.6 L Monocytes # 0.9 Eosinophils # 0.1 Basophils # 0.0 Nucleated Red Blood Cells # 0.0 Sodium Level 137 Potassium Level 4.4 Chloride Level 102 Carbon Dioxide Level 26 Anion Gap 9 Blood Urea Nitrogen 21 H Creatinine 1.06 Est Glomerular Filtrat Rate mL/min > 60 Glucose Level 104 Calcium Level 9.4 Troponin I < 0.012 HPI/ROS Admit Date/Time Admit Date/Time Hx of Present Illness Chief complaint: Chest pain This is a 62-year-old gentleman with a history of extensive cardiac disease and greater than 10 stents. Patient presents with intermittent chest pain. Of note we was made aware to me by the ED physician as well as from the EMR that the patient has been to the emergency room approximately 55 times in the past 12 months in the local ER department in the area. Most recently the patient was seen on July 28 at [facility]. Patient states that he still has substernal chest pressure relieved by nitroglycerin. The pain is approximately 2 out of 10 currently. He states that he was supposed to have an angiogram today at [facility] but could not because of social issues. Patient states that he is a resident of [place] and does not see a regular manager pricing here. Upon review of previous H&P in February 2017 patient had also reported at that same time that he was apparently due for a cardiac catheterization at [facility] but then he did not want it so he was discharged and then he should followed up with [facility]. Apparently the patient brought a printout of his recent Lexiscan cardiac stress test that was done on July 30 shorted to the ED physician. And when I interviewed the patient he states he lost his coffee and he needed to find it from the emergency department. Allergies: Penicillin, iodine medications: See JUN ROS Const: As per HPI Eyes : No pain discharge or redness or change in visual acuity ENT: No pain, sore throat, congestion, congestion, dysphagia or discharge Respiratory: No shortness of breath, cough, sputum, wheezing, or pleuritic pain Cardiovascular: As per HPI GI : no change in appetite, abdominal pain, nausea, vomiting, diarrhea, con stipation, or change in the color his stool Genitourinary: No dysuria, hematuria, flank pain , discharge or CVA tenderness Musculoskeletal: No joint pain, back pain, neck pain, restricted range of motion in neck or joints Skin: No rash, bruising or hives Neuro: No headache, dizziness, syncope, seizure, focal weakness Endocrine: No polyuria, polydipsia, temperature intolerance Psych: No hallucination, depression, anxiety or suicidal ideation PMH/Family/Social Past Medical History Coronary artery disease, history of hairy cell leukemia, chronic kidney disease, aortic aneurysm, BPH, history of CHF Medications Current Medications Ondansetron HCl (Zofran Inj) 4 mg ER BRIDGE PRN IV NAUSEA/VOMITING; Start 08/06/18 at 01:00; Stop 08/07/18 at 00:59 Acetaminophen (Tylenol Tab) 650 mg ER BRIDGE PRN PO .MILD PAIN 1-3 OR TEMP Last administered on 08/06/18at 02:04; Admin Dose 975 MG; Start 08/06/18 at 01:00; Stop 08/07/18 at 00:59 Sodium Chloride 1,000 ml @ 80 mls/hr [id number] IV Last administered on 08/06/18at 01:45; Admin Dose 80 MLS/HR; Start 08/06/18 at 01:32 IV Flush (NS 3 ml) 3 ml PER PROTOCOL IV ; Start 08/06/18 at 02:00 Ondansetron HCl (Zofran Inj) 4 mg Q6H PRN IV NAUSEA/VOMITING; Start 08/06/18 at 02:00 Nitroglycerin (Nitroglycerin (Sl Tab) 0.4 Mg) 1 tab Q5M PRN SL .CHEST PAIN; Start 08/06/18 at 02:00 Acetaminophen (Tylenol Tab) 650 mg Q6H PRN PO .PAIN 1-3 OR TEMP; Start 08/06/18 at 02:00 Docusate Sodium (Colace) 100 mg Q12H PRN PO .CONSTIPATION; Start 08/06/18 at 02:00 Bisacodyl (Dulcolax) 5 mg DAILY PRN PO .CONSTIPATION; Start 08/06/18 at 02:00 Amlodipine Besylate (Norvasc) 10 mg DAILY PO ; Start 08/06/18 at 09:00 Aspirin (Aspirin) 81 mg DAILY PO ; Start 08/06/18 at 09:00 Atorvastatin Calcium (Lipitor) 80 mg HS PO ; Start 08/06/18 at 21:00 Carvedilol (Coreg) 12.5 mg BID PO ; Start 08/06/18 at 09:00 Coded Allergies: Penicillins (Unverified Allergy, Unknown, SHORTNESS OF BREATH, 02/05/17) Sulfa (Sulfonamide Antibiotics) (Unverified Allergy, Unknown, " GIVES ME TEMPERATURE.", 02/05/17) iodine (Unverified Allergy, Unknown, 02/05/17) Past Surgical History Cardiac stents 10, appendectomy, tonsillectomy Family History Significant Family History: heart disease, diabetes Social History Alcohol Use: none Smoking Status: Never smoker Drug Use: none Exam/Review of Systems Vital Signs Vitals Vital Signs Date Temp Pulse Resp B/P (MAP) Pulse Ox O2 O2 Flow FiO2 Time Delivery Rate 08/06/18 18 147/83 100 Room Air 00:45 (104) 08/05/18 98.8 100 22:34 Intake and Output 08/05/18 08/05/18 08/06/18 1515:00 23:00 07:00 IntakeIntake Total 1000 ml BalanceBalance 1000 ml Exam Exam General: Patient is currently on his phone, he brought his radio with him as well as his dog. He also has a large suitcase with him as well. Slightly disheveled appearing HEENT: Atraumatic, normocephalic. The pupils are equal, round and reactive. Extraocular motor are intact Neck: Supple with full range of motion. No rigidity or meningismus Chest: Nontender Lungs: Clear to auscultation bilaterally no crackles rales or wheezing Heart: Normal S1-S2, Regular rhythm and rate. No murmur, S3, or S4 Abdomen: Obese, soft , nontender, nondistended , bowel sounds are present. No guarding no rebound tenderness , No masses or organomegaly. No costovertebral temporal angle mass Extremities: Normal to inspection, no edema no cyanosis Neurologic: Normal mental status, speech normal, cranial nerves II through XII are intact, motor and sensory are intact, Additional Comments PROCEDURE: XR Chest. CLINICAL INDICATION: Chest pain. TECHNIQUE: Portable AP semi erect view of the chest was obtained. COMPARISON: 04/24/2018 FINDINGS: The cardiomediastinal silhouette is mildly enlarged . The lungs are clear. There is no evidence for pleural effusion, pneumothorax or pulmonary vascular congestion. The osseous structures are intact with no evidence for acute abnormality. RPTAT:HJJR IMPRESSION: Mild cardiac silhouette enlargement without evidence for acute intrathoracic pathology. Physician Juarez Date Time Electronically viewed and signed by Cecil Hanks Physician on 08/06/2018 00:56 JR/ CC: ERIC YADAV MD [id number] EKG: Rhythm: Normal sinus rhythm ST Changes: No contiguous ST segment elevations T waves: No contiguous T wave inversions Impression: No evidence of acute cardiac ischemia KRISTINA WHITNEY August 06, 2018 04:44
[2018-08-06] MEDS ORDERED: LIDOCAINE 1% (MPF) 5 ML VIAL SC ONE (06:00)
[2018-08-06] MEDS: AMLODIPINE 10 MG TAB PO SCH (08:16)
[2018-08-06] MEDS: ASPIRIN 81 MG TAB PO SCH (08:16)
[2018-08-06] MEDS ORDERED: ASPIRIN 81 MG TAB PO SCH (09:00)
[2018-08-06] MEDS ORDERED: METOPROLOL 100 MG TAB PO SCH (09:00)
[2018-08-06] MEDS ORDERED: RANOLAZINE (SR) 500 MG TAB PO SCH (12:00)
[2018-08-06] MEDS ORDERED: PRASUGREL HYDROCHLORIDE 10 MG TABLET PO SCH (13:00)
[2018-08-06] MEDS ORDERED: PRASUGREL HCL 5 MG TABLET PO SCH (13:00)
[2018-08-06] MEDS: CLOPIDOGREL 75 MG TAB PO SCH (13:10)
[2018-08-06] MEDS: ISOSORBIDE MONONITRATE(SR)60 MG TAB PO SCH (13:10)
[2018-08-06] MEDS: LISINOPRIL 10 MG TAB PO SCH (13:11)
--- NOTE | 2018-08-06 14:34 | PN ---
Date/Time of Note Date/Time of Note DATE: 08/06/18 TIME: 14:23 Assessment/Plan VTE Prophylaxis SCD applied (from Nsg): Yes Pharmacological prophylaxis: NA/contraindicated Pharm contraindication: low risk/ambulating Lines/Catheters IV Catheter Type (from Nrsg): Saline Lock Assessment/Plan Assessment/Plan 62 yo man with history of CAD and multiple stents who presents with anginal chest pain. #chest pain/unstable angina: # coronary artery disease: - History of CAD with multiple stents placed, patient reports at least 6. - For now continue ASA, plavix, beta bonifacio. Reviewed patient's meds, he is NOT taking Effient. - See copy of 07/30 NM stress test in the chart. Briefly, there is an area of possible scar with surrounding ischemia at the inferior myocardium. The patient reports that a prior NM stress test was negative for ischemia or scar. Not mentioned on the report is if this may be diaphragm artifact? - He was scheduled to get cardiac cath at [facility] 5 days ago but didn't trust the employment evaluator/case manager to care for his dog. - Currently EKG negative for ischemia, trops neg x2. - In my opinion, medical management may be a reasonable alternative to urgent cardiac cath in this patient with questionable compliance with followup. - Will discuss with Dr. Ellison. - For now plan to observe overnight. # chronic kidney disease: At the current time patient's creatinine is 1.06. Will avoid nephrotoxic agents. Will monitor renal function. # microcytic anemia: Check iron panel. # history of CHF: We will resume home medications. At the current time patient does not appear to be volume overloaded. # history of hairy cell leukemia: In remission # possible drug-seeking behavior: Patient has been going to multiple ERs over the last 12 months. he also was requesting narcotic medication in the emergency department. At the current time there is some concern for drug- seeking behavior. I will withhold any opioids at the current time. # DVT GI prophylaxis: SCDs, Protonix Result Diagram: 08/05/18 2337 08/05/18 2336 Subjective 24 Hr Interval Summary Free Text/Dictation Attempted PICC line but procedure interrupted by patient's dog which is staying in the hospital room. See full procedure note. Patient continues to report pressure-like anginal chest pain present at rest, unrelieved by nitroglycerin. This pain has been unchanged for the last 4-5 days since he left [facility]. Exam/Review of Systems Exam Vitals Vital Signs Date Temp Pulse Resp B/P (MAP) Pulse Ox O2 O2 Flow FiO2 Time Delivery Rate 08/06/18 97.8 77 18 131/67 96 Room Air 11:47 (88) Intake and Output 08/05/18 08/05/18 08/06/18 1515:00 23:00 07:00 IntakeIntake Total 1000 ml BalanceBalance 1000 ml Exam General: Obese man well appearing sitting up in bed, walking around room. HEENT: Atraumatic, normocephalic. The pupils are equal, round and reactive. Neck: Supple with full range of motion. No JVD. Chest: Nontender Lungs: Clear to auscultation bilaterally no crackles rales or wheezing Heart: Normal S1-S2, Regular rhythm and rate. No murmur, S3, or S4 Abdomen: Obese, soft , nontender, nondistended , bowel sounds are present. Extremities: Normal to inspection, no edema no cyanosis Results Results 24hrs Laboratory Tests Test 08/05/18 23:39 08/06/18 04:44 White Blood Count 6.7 # Red Blood Count 4.48 L Hemoglobin 10.2 L Hematocrit 34.2 L Mean Corpuscular Volume 76.3 L Mean Corpuscular Hemoglobin 22.8 L Mean Corpuscular Hemoglobin Concent 29.8 L Red Cell Distribution Width 18.2 #H Platelet Count 213 # Mean Platelet Volume 9.3 Immature Granulocytes % 0.100 Neutrophils % 74.6 Lymphocytes % 9.4 L Monocytes % 13.5 H Eosinophils % 2.1 Basophils % 0.3 Nucleated Red Blood Cells % 0.0 Immature Granulocytes # 0.010 Neutrophils # 5.0 Lymphocytes # 0.6 L Monocytes # 0.9 Eosinophils # 0.1 Basophils # 0.0 Nucleated Red Blood Cells # 0.0 Sodium Level 137 Potassium Level 4.4 Chloride Level 102 Carbon Dioxide Level 26 Anion Gap 9 Blood Urea Nitrogen 21 H Creatinine 1.06 Est Glomerular Filtrat Rate mL/min > 60 Glucose Level 104 Calcium Level 9.4 Troponin I < 0.012 < 0.012 Hemoglobin A1c 5.7 Creatine Kinase 425 H Creatine Kinase Index 0.9 Creatinine Kinase MB (Mass) 3.85 H Triglycerides Level 100 Cholesterol Level 112 LDL Cholesterol, Calculated 58 HDL Cholesterol 34 Cholesterol/HDL Ratio 3.2 Thyroid Stimulating Hormone (TSH) 0.600 Medications Medication Current Medications Sodium Chloride 1,000 ml @ 80 mls/hr [id number] IV Last administered on 08/06/18at 01:45; Admin Dose 80 MLS/HR; Start 08/06/18 at 01:32 IV Flush (NS 3 ml) 3 ml PER PROTOCOL IV ; Start 08/06/18 at 02:00 Ondansetron HCl (Zofran Inj) 4 mg Q6H PRN IV NAUSEA/VOMITING; Start 08/06/18 at 02:00 Nitroglycerin (Nitroglycerin (Sl Tab) 0.4 Mg) 1 tab Q5M PRN SL .CHEST PAIN; Start 08/06/18 at 02:00 Acetaminophen (Tylenol Tab) 650 mg Q6H PRN PO .PAIN 1-3 OR TEMP; Start 08/06/18 at 02:00 Docusate Sodium (Colace) 100 mg Q12H PRN PO .CONSTIPATION; Start 08/06/18 at 02:00 Bisacodyl (Dulcolax) 5 mg DAILY PRN PO .CONSTIPATION; Start 08/06/18 at 02:00 Amlodipine Besylate (Norvasc) 10 mg DAILY PO Last administered on 08/06/18at 08:16; Admin Dose 10 MG; Start 08/06/18 at 09:00 Aspirin (Aspirin) 81 mg DAILY PO Last administered on 08/06/18at 08:16; Admin Dose 81 MG; Start 08/06/18 at 09:00 Atorvastatin Calcium (Lipitor) 80 mg HS PO ; Start 08/06/18 at 21:00 Carvedilol (Coreg) 12.5 mg BID PO Last administered on 08/06/18at 08:16; Admin Dose 12.5 MG; Start 08/06/18 at 09:00 Clopidogrel Bisulfate (plaVIX) 75 mg DAILY PO Last administered on 08/06/18at 13:10; Admin Dose 75 MG; Start 08/06/18 at 13:00 Isosorbide Mononitrate (Imdur) 120 mg DAILY PO Last administered on 08/06/18at 13:10; Admin Dose 120 MG; Start 08/06/18 at 12:00 Lisinopril (Zestril) 10 mg DAILY PO Last administered on 08/06/18at 13:11; Admin Dose 10 MG; Start 08/06/18 at 12:00 Ranolazine (Ranexa) 500 mg Q12 PO Last administered on 08/06/18at 13:10; Admin Dose 500 MG; Start 08/06/18 at 12:00 MARIAMA ARIZA MD August 06, 2018 14:34
--- NOTE | 2018-08-06 18:43 | CONS ---
DATE OF ADMISSION: 08/06/2018 DATE OF CONSULTATION: 08/06/2018 REASON FOR CONSULTATION: Chest pain, assess for acute coronary syndrome. REQUESTING PHYSICIAN: Mark Whitney MD from the hospitalist service and Mariama Nguyen MD HISTORY OF PRESENT ILLNESS: Mr. Mcneil is a 62-year-old male known to myself from a prior hospital admission who carries a history of multiple prior PTCA and stent placements. Per the patient, at th is time, he states 6, with the most recent one being about a year ago done in [place] where he live s. Chronic kidney disease, coronary artery disease, history of leukemia and anemia who presented wit h complaints of substernal chest pain described as pressure-like sensation and he states radiates to his arm. The patient states that he had recently been at [facility], but for unclear reasons, did not have a cath done there and states that his stress test was do ne at [place] and states that he did not stay in [place] to have a cath because he wanted to go to [facility]. He now presents to [facility] stating that he was on his way back to [place] when he had too much pain. Upon arrival, temperature of 98.8, blood pressure 163/72, pulse 100, res pirations 18, satting 98%. The patient's labs are white count of 6.7, hemoglobin 10.2, platelet coun t 213. Sodium 137, potassium 4.4, creatinine 1.0, BUN of 21. Troponin negative. LDL 58, HDL 34. T he patient underwent a chest x-ray revealing mild cardiac silhouette enlargement. The patient's elec trocardiogram revealed normal sinus rhythm at 87, left axis deviation, borderline voltage criteria fo r left ventricular hypertrophy ____. The patient ____ states he has ongoing chest pain. PAST MEDICAL HISTORY: As above in the HPI. MEDICATIONS CURRENTLY IN HOSPITAL: 1. Lipitor 80 mg at bedtime. 2. Plavix 75 mg daily. 3. Imdur 120 mg daily. 4. Zestril 10 mg daily. 5. Ranexa 500 mg q.12. 6. Norvasc 10 mg daily. 7. Aspirin 81 mg daily. 8. Carvedilol 12.5 mg p.o. b.i.d. ALLERGIES: 1. PENICILLIN. 2. SULFA. 3. IODINE. SOCIAL HISTORY: No current tobacco or ETOH. FAMILY HISTORY: No history of sudden cardiac or early CAD. REVIEW OF SYSTEMS: As above in the HPI. CONSTITUTIONAL: No fevers or chills. PULMONARY: No current shortness of breath. CARDIOVASCULAR: No chest pain. GASTROINTESTINAL: No vomiting. GENITOURINARY: No hematuria. MUSCULOSKELETAL: Degenerative joint disease. PSYCHIATRIC: Positive psych history. NEUROLOGIC: No documented history of CVA. ENDOCRINE: No documented history of diabetes mellitus. PHYSICAL EXAMINATION: VITAL SIGNS: Temperature of 98.8, blood pressure most recently 142/63, pulse 72, respiratory rate 18 , satting 99%. GENERAL: The patient is alert, awake, complaining of substernal chest pain. NECK: JVP approximately 8 to 9 cm of water. CHEST: Fair air movement throughout. HEART: Regular rate and rhythm. Normal S1, S2. Grade 1/ systolic murmur, nondisplaced PMI. ABDOMEN: Positive bowel sounds, soft. EXTREMITIES: No significant pitting edema, 1+ pulses bilateral posterior tibial. LABORATORY DATA: As above in the HPI. Most recent from today, troponin negative x2, LDL 58, HDL 34. IMAGING STUDIES: As above in the HPI. No further imaging studies for my review at this time. ECG: As above in the HPI. No further electrocardiograms for my review at this time. Stress test done at outside hospital interpreted as having a partially reversible defect of proximal inferior wall concerning for infarct to a component of monica-infarct ischemia, occasional, mostly in t he proximal inferior myocardium, EF of 65%. Attenuation artifacts in the lateral and anteroseptal po rtions of the myocardium. IMPRESSION: 1. Chest pain, assess for acute coronary syndrome and for possible unstable angina. The patient als o may be showing some drug-seeking behavior and has been admitted to the outside hospital with a very similar story stating that he had been at [facility] and was supposed to have a cardiac catheteriz ation but left because he was concerned about during the procedure and then he presented here, had dr ug-seeking behavior and then left against medical advice. 2. Hypertension. 3. History of multiple prior PTCA and stent placement procedures. 4. Dyslipidemia. 5. Abnormal myocardial PET stress test study. RECOMMENDATIONS: 1. At this time, as the patient's troponins were negative and the patient's stress test points to pr ior inferior infarct with monica-infarct ischemia. I would attempt to maximize medical therapy with a normal EF. Thus, this time, we would maintain the patient on telemetry monitoring to follow rhythm a nd rate control closely. 2. Would complete the patient's workup for myocardial infarction to ensure the patient's chest pain is not indicative of an acute myocardial infarction. 3. Continue the patient's current Plavix and aspirin for stent patency. We will the patient's high- dose statin. 4. Agree with the patient's Imdur and we will maximize the patient's Ranexa from 500 to 1000 q.12h. Additionally, we will continue the patient's Norvasc for antianginal effects and we will continue th e patient's carvedilol and if pressure continues to remain elevated, we will increase the patient's c arvedilol to improve overall heart rate control and blood pressure control. 5. Continue the patient's IV hydration and follow creatinine closely. 6. Left heart catheterization for ongoing uncontrolled chest pain. Thank you for allowing me to take part in the care of this patient. I will continue to follow very c losely with you with further recommendations to be made as the patient progress through the inpatient hospital clinical course. Dictated By: MARIAMA RIVERO/COLEMAN Conf#: [id number] DID#: [id number] CC: MARIAMA NGUYEN MD; MARK WHITNEY MD;*EndCC*
--- NOTE | 2018-08-06 18:57 | RADRPT ---
Echocardiogram Report Patient Name: Jono CALVOent ID: [id number] : 1955 (62y 12m)Study Date: 08/06/2018 8:45:52 AM Gender: MAccession #: [id number] Tech: Amy Solorio RDCS Location: 527 Ref.Physician: KRISTINA WHITNEY Height(Cm): BSA: Weight(Kg): Quality: AdequateAccount #: Procedures: Echocardiographic Report: Transthoracic echocardiogram with complete 2D, M-Mode, and doppler examination. Indications: Chest Pain. Measurements: 2D/M Mode Doppler Measurement Value Normal Range Measurement Value Normal Range LVIDd 2D 4.6 [ 4.2 - 5.8 ] cm AV Mean Yefri 1.4 [ 70.0 - 90.0 ] cm/sec LVIDs 2D 2.6 [ 2.5 - 4.0 ] cm AV Mean PG 9.0 [ 2.0 - 4.0 ] mmHg LVPWd 2D 0.9 [ 0.6 - 1.0 ] cm AV VTI 38.3 cm IVSd 2D 1.1 [ 0.6 - 1.0 ] cm AI Peak PG 61.0 mmHg AoR Diam 2D 2.8 [ 2.6 - 3.4 ] cm AI Peak Yefri 3.9 cm/sec EDV 2D 95.4 [ 62.0 - 150.0 ] ml AI PHT 596.0 msec ESV 2D 24.8 [ 21.0 - 61.0 ] ml LVOT Mean Yefri 1.2 [ 60.0 - 80.0 ] cm/sec EF 2D 74.0 [ 52.0 - 72.0 ] percent LVOT Mean PG 6.0 [ 1.0 - 3.0 ] mmHg LA Dimen 2D 3.3 [ 3.0 - 4.0 ] cm LVOT Peak Yefri 1.7 [ 70.0 - 110.0 ] cm/sec LVOT Peak PG 12.0 [ 2.0 - 6.0 ] mmHg LVOT VTI 33.5 [ 20.0 - 30.0 ] cm MV E Peak Yefri 0.9 [ 60.0 - 130.0 ] cm/sec MV A Peak Yefri 1.0 [ 100.0 - 120.0 ] cm/sec MV E/A 0.9 [ 0.8 - 1.5 ] ratio MV Decel Time 180 [ 104 - 258 ] msec Lat E` Yefri 0.1 [ 10.0 - 15.0 ] cm/sec Lateral E/E` 8.3 [ 1.0 - 2.0 ] ratio MV E/A 0.9 [ 0.8 - 1.5 ] ratio Findings: Left Ventricle: Normal left ventricular systolic function. Normal left ventricular cavity size. Mild concentric left ventricular hypertrophy. Ejection fraction is visually estimated at 60-65 %. Tissue Doppler/Mitral Doppler indices are consistent with impaired relaxation (Stage I diastolic dysfunction). Right Ventricle: Normal right ventricular size. Normal right ventricular systolic function. Left Atrium: The left atrium is normal in size. Right Atrium: The right atrium is normal in size. Mitral Valve: Normal appearance and function of the mitral valve with trace physiologic regurgitation. Aortic Valve: Normal appearance of the aortic valve. No significant aortic stenosis or insufficiency. Tricuspid Valve: Normal appearance and function of the tricuspid valve with trace physiologic regurgitation. Normal right ventricular systolic pressure. Pulmonic Valve: Pulmonic valve not well visualized. Pericardium: Normal pericardium with no significant pericardial effusion. Aorta: Normal aortic root. IVC: Normal size and normal respiratory collapse consistent with normal right atrial pressure. Conclusions: Normal left ventricular systolic function. Normal left ventricular cavity size. Mild concentric left ventricular hypertrophy. Ejection fraction is visually estimated at 60-65 %. Tissue Doppler/Mitral Doppler indices are consistent with impaired relaxation (Stage I diastolic dysfunction). Normal appearance and function of the mitral valve with trace physiologic regurgitation. Normal appearance and function of the tricuspid valve with trace physiologic regurgitation. Normal right ventricular systolic pressure. Electronically Signed By: Matt Ellison 2018-08-06 18:56:33 PDT
[2018-08-06] MEDS: RANOLAZINE (SR) 500 MG TAB PO SCH (20:24)
[2018-08-06] MEDS: ATORVASTATIN 80 MG TAB PO SCH (20:25)
[2018-08-06] MEDS ORDERED: traMADol 50 MG TAB PO PRN (20:30)
[2018-08-07] VITALS (12 sets, daily range): BP systolic 104–172; BP diastolic 50–79; PULSE 74–96; RESP 18–20
[2018-08-07] MEDS: POLYETHYLENE GLYCOL 17 GM PACKET PO SCH ×2 (00:51→09:00)
[2018-08-07] MEDS: SOD CHLORIDE 0.9% 1,000 ML IV SCH ×2 (02:32→15:02)
[2018-08-07] MEDS ORDERED: AL HYDROX/MG HYDROX/SIMETH 30 ML CUP PO PRN (04:00)
[2018-08-07] MEDS: ISOSORBIDE MONONITRATE(SR)60 MG TAB PO SCH (08:59)
[2018-08-07] MEDS: AMLODIPINE 10 MG TAB PO SCH (09:00)
[2018-08-07] MEDS: RANOLAZINE (SR) 500 MG TAB PO SCH ×2 (09:00→20:31)
[2018-08-07] MEDS: ASPIRIN 81 MG TAB PO SCH (09:00)
[2018-08-07] MEDS: CLOPIDOGREL 75 MG TAB PO SCH (09:00)
[2018-08-07] MEDS: LISINOPRIL 10 MG TAB PO SCH (09:00)
--- NOTE | 2018-08-07 13:52 | CONS ---
Assessment/Plan Assessment/Plan Hospital Course (Demo Recall) IMPRESSION: 1. Chest pain, assess for acute coronary syndrome and for possible unstable angina. The patient also may be showing some drug-seeking behavior and has been admitted to the outside hospital with a very similar story stating that he had been at [facility] and was supposed to have a cardiac catheterization but left because he was concerned about during the procedure and then he presented here, had drug-seeking behavior and then left against medical advice.-neg trop x 3/NL EF By echo 2. Hypertension. 3. History of multiple prior PTCA and stent placement procedures. 4. Dyslipidemia. 5. Abnormal myocardial PET stress test study. Recc: -Tele -serial ecg's -Continue imdur/ranexa at increased dose -Continue plavix and asa -Continue zestril/coreg/norvasc -Scheduled for [facility] tomorrow AM given ongoing chest pain Consultation Date/Type/Reason Admit Date/Time August 06, 2018 at 00:59 Initial Consult Date 08/06/2018 Type of Consult Cardiology Reason for Consultation chest pain Requesting Provider: MARIAMA ARIZA MD Date/Time of Note DATE: 08/07/18 TIME: 13:48 Exam/Review of Systems Vital Signs Vitals Vital Signs Date Temp Pulse Resp B/P (MAP) Pulse Ox O2 O2 Flow FiO2 Time Delivery Rate 08/07/18 98.1 74 18 114/61 98 Room Air 11:58 (78) Intake and Output 08/06/18 08/06/18 08/07/18 1515:00 23:00 07:00 IntakeIntake Total 1000 ml 500 ml BalanceBalance 1000 ml 500 ml Exam Exam Review of Systems: CONSTITUTIONAL: No fevers, chills. PULMONARY: No sob CARDIOVASCULAR:ongoing chest pain GASTROINTESTINAL: No nausea/vomiting. GENITOURINARY: No hematuria/dysuria. MUSCULOSKELETAL: No myagias/arthalgias. PSYCHIATRIC: The patient denies depression. NEUROLOGIC: No weakness Constitutional: alert Psych: no complaints Head: normocephalic ENMT: mucosa pink and moist Neck: supple, jvd (9 cm water) Respiratory: diminished breath sounds (at bases/B) Cardiovascular: regular rate and rhythm Gastrointestinal: soft, non-tender Musculoskeletal: muscle tone (normal) Extremities: edema (none) Labs Result Diagram: 08/07/18 0737 08/07/18 0737 Results 24hrs Laboratory Tests Test 08/06/18 17:17 08/07/18 07:37 Creatine Kinase 404 H Creatine Kinase Index 0.9 Creatinine Kinase MB (Mass) 3.79 H Troponin I < 0.012 White Blood Count 4.0 #L Red Blood Count 3.85 L Hemoglobin 8.9 L Hematocrit 30.0 L Mean Corpuscular Volume 77.9 L Mean Corpuscular Hemoglobin 23.1 L Mean Corpuscular Hemoglobin Concent 29.7 L Red Cell Distribution Width 18.5 H Platelet Count 192 Mean Platelet Volume 9.7 Immature Granulocytes % 0.500 H Neutrophils % 65.2 Lymphocytes % 15.7 Monocytes % 15.7 H Eosinophils % 2.7 Basophils % 0.2 Nucleated Red Blood Cells % 0.0 Immature Granulocytes # 0.020 Neutrophils # 2.6 Lymphocytes # 0.6 L Monocytes # 0.6 Eosinophils # 0.1 Basophils # 0.0 Nucleated Red Blood Cells # 0.0 Sodium Level 141 Potassium Level 4.2 Chloride Level 109 Carbon Dioxide Level 23 Anion Gap 9 Blood Urea Nitrogen 24 H Creatinine 1.00 Est Glomerular Filtrat Rate mL/min > 60 Glucose Level 128 Calcium Level 9.4 Iron Level 31 L Total Iron Binding Capacity 407 Percent Iron Saturation 8 L Ferritin 8.6 L Total Bilirubin 0.1 L Direct Bilirubin 0.00 Indirect Bilirubin 0.1 Aspartate Amino Transf (AST/SGOT) 24 Alanine Aminotransferase (ALT/SGPT) 28 Alkaline Phosphatase 116 Total Protein 6.3 Albumin 3.6 Globulin 2.70 Albumin/Globulin Ratio 1.33 Medications Medications Current Medications Sodium Chloride 1,000 ml @ 80 mls/hr [id number] IV Last administered on 08/06/18at 01:45; Admin Dose 80 MLS/HR; Start 08/06/18 at 01:32 IV Flush (NS 3 ml) 3 ml PER PROTOCOL IV ; Start 08/06/18 at 02:00 Ondansetron HCl (Zofran Inj) 4 mg Q6H PRN IV NAUSEA/VOMITING; Start 08/06/18 at 02:00 Nitroglycerin (Nitroglycerin (Sl Tab) 0.4 Mg) 1 tab Q5M PRN SL .CHEST PAIN; Start 08/06/18 at 02:00 Acetaminophen (Tylenol Tab) 650 mg Q6H PRN PO .PAIN 1-3 OR TEMP; Start 08/06/18 at 02:00 Docusate Sodium (Colace) 100 mg Q12H PRN PO .CONSTIPATION; Start 08/06/18 at 02:00 Bisacodyl (Dulcolax) 5 mg DAILY PRN PO .CONSTIPATION; Start 08/06/18 at 02:00 Amlodipine Besylate (Norvasc) 10 mg DAILY PO Last administered on 08/07/18 09:00; Admin Dose 10 MG; Start 08/06/18 at 09:00 Aspirin (Aspirin) 81 mg DAILY PO Last administered on 08/07/18at 09:00; Admin Dose 81 MG; Start 08/06/18 at 09:00 Atorvastatin Calcium (Lipitor) 80 mg HS PO Last administered on 08/06/18 20:25; Admin Dose 80 MG; Start 08/06/18 at 21:00 Carvedilol (Coreg) 12.5 mg BID PO Last administered on 08/07/18 09:00; Admin Dose 12.5 MG; Start 08/06/18 at 09:00 Clopidogrel Bisulfate (plaVIX) 75 mg DAILY PO Last administered on 08/07/18at 09:00; Admin Dose 75 MG; Start 08/06/18 at 13:00 Isosorbide Mononitrate (Imdur) 120 mg DAILY PO Last administered on 08/07/18at 08:59; Admin Dose 120 MG; Start 08/06/18 at 12:00 Lisinopril (Zestril) 10 mg DAILY PO Last administered on 08/07/18at 09:00; Admin Dose 10 MG; Start 08/06/18 at 12:00 Ranolazine (Ranexa) 1,000 mg Q12 PO Last administered on 08/07/18at 09:00; Admin Dose 1,000 MG; Start 08/06/18 at 21:00 Tramadol HCl (Ultram) 50 mg Q6H PRN PO MODERATE PAIN LEVEL 4-6 Last administered on 08/06/18at 20:25; Admin Dose 50 MG; Start 08/06/18 at 20:30 Polyethylene Glycol (Miralax) 17 gm DAILY PO ; Start 08/07/18 at 01:00 Al Hydrox/Mg Hydrox/Simethicone (Mag-Al Plus) 30 ml Q6H PRN PO GASTROINTESTINAL UPSET; Start 08/07/18 at 04:00 MARIAMA PIMENTEL August 07, 2018 13:52
--- NOTE | 2018-08-07 14:32 | PN ---
Date/Time of Note Date/Time of Note DATE: 08/07/18 TIME: 14:27 Assessment/Plan VTE Prophylaxis Risk score (from Ns)>0 risk: 3 SCD applied (from Ns): No SCD contraindicated: low risk/ambulating Pharmacological prophylaxis: NA/contraindicated Pharm contraindication: low risk/ambulating Lines/Catheters IV [facility] Saline Lock Assessment/Plan Assessment/Plan 62 yo man with history of CAD and multiple stents who presents with anginal chest pain. #chest pain/unstable angina: # coronary artery disease: - History of CAD with multiple stents placed, patient reports at least 6. - For now continue ASA, plavix, beta bonifacio. - See copy of 07/30 NM stress test in the chart. Briefly, there is an area of possible scar with surrounding ischemia at the inferior myocardium. The patient reports that a prior NM stress test was negative for ischemia or scar. - He was scheduled to get cardiac cath at [facility] 5 days ago but didn't trust the manager rn case to care of his dog so left. - Currently EKG negative for ischemia, trops neg x3. - Dr. Ellison following; uptitrated Ranexa and Imdur. - Plan for cardiac cath tomorrow; premedicate with prednisone for iodine allergy. # chronic kidney disease: At the current time patient's creatinine is 1.06. Will avoid nephrotoxic agents. Will monitor renal function. # Iron deficiency anemia - Pretty significant. Will give Ferrlicit now. May need outpatient colonoscopy. # history of CHF: We will resume home medications. At the current time patient does not appear to be volume overloaded. # history of hairy cell leukemia: In remission # possible drug-seeking behavior: Patient has been going to multiple ERs over the last 12 months. he also was requesting narcotic medication in the emergency department. At the current time there is some concern for drug- seeking behavior. I will withhold any opioids at the current time. # DVT GI prophylaxis: SCDs, Protonix Result Diagram: 08/07/18 0737 08/07/18 0737 Subjective 24 Hr Interval Summary Free Text/Dictation Anginal chest pain, according to patient, worsened last night and this morning is about back to baseline. Ambulated with me about 20 feet before he developed pressure-like pain. Otherwise tolerating diet, no dyspnea, no dizziness. Exam/Review of Systems Exam Vitals Vital Signs Date Temp Pulse Resp B/P (MAP) Pulse Ox O2 O2 Flow FiO2 Time Delivery Rate 08/07/18 98.1 74 18 114/61 98 Room Air 11:58 (78) Intake and Output 08/06/18 08/06/18 08/07/18 1515:00 23:00 07:00 IntakeIntake Total 1000 ml 500 ml BalanceBalance 1000 ml 500 ml Exam General: Obese man well appearing sitting up in bed, walking around room. HEENT: Atraumatic, normocephalic. The pupils are equal, round and reactive. Neck: Supple with full range of motion. No JVD. Chest: Nontender Lungs: Clear to auscultation bilaterally no crackles rales or wheezing Heart: Normal S1-S2, Regular rhythm and rate. No murmur, S3, or S4 Abdomen: Obese, soft , nontender, nondistended , bowel sounds are present. Extremities: Normal to inspection, no edema no cyanosis Results Results 24hrs Laboratory Tests Test 08/06/18 17:17 08/07/18 07:37 Creatine Kinase 404 H Creatine Kinase Index 0.9 Creatinine Kinase MB (Mass) 3.79 H Troponin I < 0.012 White Blood Count 4.0 #L Red Blood Count 3.85 L Hemoglobin 8.9 L Hematocrit 30.0 L Mean Corpuscular Volume 77.9 L Mean Corpuscular Hemoglobin 23.1 L Mean Corpuscular Hemoglobin Concent 29.7 L Red Cell Distribution Width 18.5 H Platelet Count 192 Mean Platelet Volume 9.7 Immature Granulocytes % 0.500 H Neutrophils % 65.2 Lymphocytes % 15.7 Monocytes % 15.7 H Eosinophils % 2.7 Basophils % 0.2 Nucleated Red Blood Cells % 0.0 Immature Granulocytes # 0.020 Neutrophils # 2.6 Lymphocytes # 0.6 L Monocytes # 0.6 Eosinophils # 0.1 Basophils # 0.0 Nucleated Red Blood Cells # 0.0 Sodium Level 141 Potassium Level 4.2 Chloride Level 109 Carbon Dioxide Level 23 Anion Gap 9 Blood Urea Nitrogen 24 H Creatinine 1.00 Est Glomerular Filtrat Rate mL/min > 60 Glucose Level 128 Calcium Level 9.4 Iron Level 31 L Total Iron Binding Capacity 407 Percent Iron Saturation 8 L Ferritin 8.6 L Total Bilirubin 0.1 L Direct Bilirubin 0.00 Indirect Bilirubin 0.1 Aspartate Amino Transf (AST/SGOT) 24 Alanine Aminotransferase (ALT/SGPT) 28 Alkaline Phosphatase 116 Total Protein 6.3 Albumin 3.6 Globulin 2.70 Albumin/Globulin Ratio 1.33 Medications Medication Current Medications Sodium Chloride 1,000 ml @ 80 mls/hr [id number] IV Last administered on 08/06/18at 01:45; Admin Dose 80 MLS/HR; Start 08/06/18 at 01:32 IV Flush (NS 3 ml) 3 ml PER PROTOCOL IV ; Start 08/06/18 at 02:00 Ondansetron HCl (Zofran Inj) 4 mg Q6H PRN IV NAUSEA/VOMITING; Start 08/06/18 at 02:00 Nitroglycerin (Nitroglycerin (Sl Tab) 0.4 Mg) 1 tab Q5M PRN SL .CHEST PAIN; Start 08/06/18 at 02:00 Acetaminophen (Tylenol Tab) 650 mg Q6H PRN PO .PAIN 1-3 OR TEMP; Start 08/06/18 at 02:00 Docusate Sodium (Colace) 100 mg Q12H PRN PO .CONSTIPATION; Start 08/06/18 at 02:00 Bisacodyl (Dulcolax) 5 mg DAILY PRN PO .CONSTIPATION; Start 08/06/18 at 02:00 Amlodipine Besylate (Norvasc) 10 mg DAILY PO Last administered on 08/07/18at 09: 00; Admin Dose 10 MG; Start 08/06/18 at 09:00 Aspirin (Aspirin) 81 mg DAILY PO Last administered on 08/07/18at 09:00; Admin Dose 81 MG; Start 08/06/18 at 09:00 Atorvastatin Calcium (Lipitor) 80 mg HS PO Last administered on 08/06/18at 20:25; Admin Dose 80 MG; Start 08/06/18 at 21:00 Carvedilol (Coreg) 12.5 mg BID PO Last administered on 08/07/18at 09:00; Admin Dose 12.5 MG; Start 08/06/18 at 09:00 Clopidogrel Bisulfate (plaVIX) 75 mg DAILY PO Last administered on 08/07/18at 09:00; Admin Dose 75 MG; Start 08/06/18 at 13:00 Isosorbide Mononitrate (Imdur) 120 mg DAILY PO Last administered on 08/07/18at 08:59; Admin Dose 120 MG; Start 08/06/18 at 12:00 Lisinopril (Zestril) 10 mg DAILY PO Last administered on 08/07/18at 09:00; Admin Dose 10 MG; Start 08/06/18 at 12:00 Ranolazine (Ranexa) 1,000 mg Q12 PO Last administered on 08/07/18at 09:00; Admin Dose 1,000 MG; Start 08/06/18 at 21:00 Tramadol HCl (Ultram) 50 mg Q6H PRN PO MODERATE PAIN LEVEL 4-6 Last administered on 08/06/18at 20:25; Admin Dose 50 MG; Start 08/06/18 at 20:30 Polyethylene Glycol (Miralax) 17 gm DAILY PO ; Start 08/07/18 at 01:00 Al Hydrox/Mg Hydrox/Simethicone (Mag-Al Plus) 30 ml Q6H PRN PO GASTROINTESTINAL UPSET; Start 08/07/18 at 04:00 Prednisone (Prednisone) 50 mg Q6 PO ; Start 08/08/18 at 00:00; Status UNV Diazepam (Valium) 5 mg OC ONCE PO ; Start 08/08/18 at 12:00; Stop 08/08/18 at 12:01; Status UNV Diphenhydramine HCl (Benadryl) 50 mg OC ONCE PO ; Start 08/08/18 at 12:00; Stop 08/08/18 at 12:01; Status UNV MARIAMA ARIZA MD August 07, 2018 14:32
--- NOTE | 2018-08-07 15:57 | RADRPT ---
Vent Rate: 77 bpm RR Interval: 776 msec NJ Interval: 195 msec QRS Duration: 109 msec QT Interval: 395 msec QTC Interval: 448 msec P-R-T Reform: 53 - -14 - 52 degrees Sinus rhythm...normal P axis, V-rate 50- 99 Anteroseptal infarct, old...Q >40mS, V1-V2 Electronically Signed By: Mitchell Dial
[2018-08-07] MEDS ORDERED: SOD FERRIC GLUC COMPLX 125 MG in SOD CHLORIDE 0.9% 100 ML IVPB ONE (17:00)
[2018-08-07] MEDS: ATORVASTATIN 80 MG TAB PO SCH (20:31)
[2018-08-08 00:04] VITALS: BP 146/70; PULSE 80; RESP 18
[2018-08-08 00:09] VITALS: PULSE 80
[2018-08-08] MEDS ORDERED: predniSONE 50 MG TAB PO ONE ×3 (00:30→12:30)
[2018-08-08] MEDS ORDERED: ONDANSETRON 4 MG TAB PO PRN (01:30)
[2018-08-08] MEDS: SOD CHLORIDE 0.9% 1,000 ML IV SCH (03:32)
[2018-08-08 03:52] VITALS: BP 159/75; PULSE 82; RESP 18
[2018-08-08] MEDS ORDERED: DIAZEPAM 5 MG TAB PO ONE (12:00)
[2018-08-08] MEDS ORDERED: DIPHENHYDRAMINE 50 MG CAP PO ONE (12:00)
--- NOTE | 2018-08-08 15:14 | DS ---
Date/Time of Note Date/Time of Note DATE: 08/08/18 TIME: 15:07 Discharge Summary Admission/Discharge Info Admit Date/Time August 06, 2018 at 00:59 Discharge Date/Time August 08, 2018 at 07:00 Discharge Diagnosis Coronary artery disease with chronic stable angina. Patient Condition: Fair Consults Dr. Ellison, cardiology. Procedures None Hx of Present Illness Chief complaint: Chest pain This is a 62-year-old gentleman with a history of extensive cardiac disease and greater than 10 stents. Patient presents with intermittent chest pain. Of note we was made aware to me by the ED physician as well as from the EMR that the patient has been to the emergency room approximately 55 times in the past 12 months in the local ER department in the area. Most recently the patient was seen on July 28 at [facility]. Patient states that he still has substernal chest pressure relieved by nitroglycerin. The pain is approximately 2 out of 10 currently. He states that he was supposed to have an angiogram today at [facility] but could not because of social issues. Patient states that he is a resident of [place] and does not see a regular university librarian here. Upon review of previous H&P in February 2017 patient had also reported at that same time that he was apparently due for a cardiac catheterization at [facility] but then he did not want it so he was discharged and then he should followed up with [facility]. The patient brought a printout of his recent Lexiscan cardiac stress test that was done on July 30 showing inferior wall infarct with a small area of s urrounding ischemia. And when I interviewed the patient he states he lost his coffee and he needed to find it from the emergency department. Allergies: Penicillin, iodine medications: See [facility] Hospital Course The patient was admitted complaining of anginal pain. EKG did not show ischemic disease, trops negative x3. His anti-anginals including Ranexa and isosorbide mononitrate were uptitrated. The patient continued to complain of chest pain while MD was present, but was ambulatory without much apparent distress otherwise. We were unable to get IV access; and when a midline was attempted the patient refused the procedure. Although there was a strong suspicion the patient was dissembling; a cardiac cath was planned. The patient reported a severe anaphylactic reaction to iodinated contrast and requested pretreatment with benadryl and prednisone. He also requested someone to watch his Sri dog during the procedure, which had been staying in his hospital room with him. This was actually arranged by our talented social worker psychiatric. The morning of the cardiac cath the patient left AMA. Home Meds Active Scripts Ibuprofen* (Motrin*) 600 Mg Tab, 600 MG PO Q8, #30 TAB Prov:LAYO PAN DO 05/22/15 Reported Medications Ranolazine* (Ranexa*) 500 Mg Tab.sr.12h, 500 MG PO Q12, TAB 02/05/17 Metoprolol Tartrate* (Lopressor*) 100 Mg Tablet, 100 MG PO DAILY, #60 TAB 02/05/17 Lisinopril* (Lisinopril*) 10 Mg Tablet, 10 MG PO DAILY, #30 TAB 02/05/17 Clopidogrel Bisulfate* (Clopidogrel Bisulfate*) 75 Mg Tablet, 75 MG PO DAILY, #30 TAB 02/05/17 Isosorbide Mononitrate* (Isosorbide Mononitrate*) 120 Mg Tab.sr.24h, 120 MG PO DAILY, TAB.SA 02/05/17 Atorvastatin* (Atorvastatin*) 80 Mg Tablet, 80 MG PO HS, TAB 10/27/14 Amlodipine Besylate* (Amlodipine Besylate*) 10 Mg Tablet, 10 MG PO DAILY, TAB 10/27/14 Aspirin* (Aspirin* Chew) 81 Mg Tab.chew, 81 MG PO DAILY, TAB.CHEW 10/27/14 Nitroglycerin* (Nitroglycerin* SL) 0.4 Mg Tab.subl, 0.4 MG SL Q5MIN PRN for CHEST PAIN, BOTTLE 10/27/14 Carvedilol* (Carvedilol*) 12.5 Mg Tablet, 12.5 MG PO BID, TAB 10/27/14 Prasugrel Hydrochloride* (Effient*) 5 Mg Tablet, 5 MG PO DAILY, TAB 10/27/14 Tamsulosin Hcl* (Tamsulosin Hcl*) 0.4 Mg Cap.er.24h, 0.4 MG PO HS, CAP 10/27/14 Primary Care Provider Care Physician No Primary Time spent on discharge: > 30 minutes MARIAMA ARIZA MD August 08, 2018 15:13
== END 2018-08-08 07:00 | disposition left against medical advice (07) | DRG 303 ==
LOC: E/R 22:18 → TEL 08-06 00:59
PROVIDERS: ADMIT Family Medicine; ATTEND Internal Medicine
DX: I25.118 Atherosclerotic heart disease of native coronary artery with other forms of angina pectoris (principal); C91.41 Hairy cell leukemia, in remission; I13.0 Hypertensive heart and chronic kidney disease with heart failure and stage 1 through stage 4 chronic kidney disease, or unspecified chronic kidney disease; N18.9 Chronic kidney disease, unspecified; I50.9 Heart failure, unspecified; D50.9 Iron deficiency anemia, unspecified; E78.5 Hyperlipidemia, unspecified; Z95.5 Presence of coronary angioplasty implant and graft; Z79.82 Long term (current) use of aspirin; Z88.0 Allergy status to penicillin; Z88.2 Allergy status to sulfonamides; Z82.49 Family history of ischemic heart disease and other diseases of the circulatory system
CPT/HCPCS: 71045; 80048; 80053; 80061; 82550; 82553; 82728; 83036; 83540; 84443; 84484; 85025; 93005; 93306; J1885; J2405; J2916; J7030; J7512

== ENCOUNTER 2018-08-20 16:37 | Emergency (ER) | payer MEDICARE ==
[~2018-08-20] VITALS: Wt 92.3 kg
[2018-08-20 17:11] VITALS: BP 178/81; PULSE 107; RESP 22
--- NOTE | 2018-08-20 17:53 | ERD ---
ER Documentation Chief Complaint Chief Complaint L sided CP 10/15; 'seen by [facility] twice yest DCd w neg troponins' HPI 62-year-old male presents the emergency department complaining of chest pain. Patient states he has a history of heart disease with "multiple stents." He is carrying around a stress test which demonstrated a small reversible area of ischemia that he had done in July. Since then, he has been to at least 6 other emergency departments for evaluation of chest pain including [facility] last night where apparently troponins were negative x2. He states he is still "awaiting a cath." In total his records indicate 61 evaluations within the last year for chest pain. Patient states that the pain is nonspecific, nonradiating, nonexertional. He reports no shortness of breath or palpitations. ROS All systems reviewed and are negative except as per history of present illness. Medications Home Meds Active Scripts Ibuprofen* (Motrin*) 600 Mg Tab, 600 MG PO Q8, #30 TAB Prov:LAYO PAN DO 05/22/15 Reported Medications Ranolazine* (Ranexa*) 500 Mg Tab.sr.12h, 500 MG PO Q12, TAB 02/05/17 Metoprolol Tartrate* (Lopressor*) 100 Mg Tablet, 100 MG PO DAILY, #60 TAB 02/05/17 Lisinopril* (Lisinopril*) 10 Mg Tablet, 10 MG PO DAILY, #30 TAB 02/05/17 Clopidogrel Bisulfate* (Clopidogrel Bisulfate*) 75 Mg Tablet, 75 MG PO DAILY, #30 TAB 02/05/17 Isosorbide Mononitrate* (Isosorbide Mononitrate*) 120 Mg Tab.sr.24h, 120 MG PO DAILY, TAB.SA 02/05/17 Atorvastatin* (Atorvastatin*) 80 Mg Tablet, 80 MG PO HS, TAB 10/27/14 Amlodipine Besylate* (Amlodipine Besylate*) 10 Mg Tablet, 10 MG PO DAILY, TAB 10/27/14 Aspirin* (Aspirin* Chew) 81 Mg Tab.chew, 81 MG PO DAILY, TAB.CHEW 10/27/14 Nitroglycerin* (Nitroglycerin* SL) 0.4 Mg Tab.subl, 0.4 MG SL Q5MIN PRN for CHEST PAIN, BOTTLE 10/27/14 Carvedilol* (Carvedilol*) 12.5 Mg Tablet, 12.5 MG PO BID, TAB 10/27/14 Prasugrel Hydrochloride* (Effient*) 5 Mg Tablet, 5 MG PO DAILY, TAB 10/27/14 Tamsulosin Hcl* (Tamsulosin Hcl*) 0.4 Mg Cap.er.24h, 0.4 MG PO HS, CAP 10/27/14 Allergies Allergies: Coded Allergies: Penicillins (Unverified Allergy, Unknown, SHORTNESS OF BREATH, 02/05/17) Sulfa (Sulfonamide Antibiotics) (Unverified Allergy, Unknown, " GIVES ME TEMPERATURE.", 02/05/17) iodine (Unverified Allergy, Unknown, 02/05/17) PMhx/Soc History of Surgery: Yes Anesthesia Reaction: No Hx Neurological Disorder: No Hx Respiratory Disorders: Yes (bronchitis) Hx Cardiac Disorders: Yes (HTN,stable angina) Hx Psychiatric Problems: Yes (anxiety) Hx Miscellaneous Medical Probl: Yes (hematochezia,costochondritis,flank pain,peripheral edema,cellulitis,sciatic) Hx Alcohol Use: No Hx Substance Use: No Hx Tobacco Use: No FmHx Noncontributory for chief complaint Physical Exam Vitals Vital Signs Date Temp Pulse Resp B/P (MAP) Pulse Ox O2 O2 Flow FiO2 Time Delivery Rate 08/20/18 99.4 107 22 178/81 99 17:11 (113) Physical Exam GENERAL: The patient is well developed and appropriate for usual state of health in no apparent distress HEENT: Pupils equal, round, and reactive to light. EOMI. There is no scleral icterus. NECK: C-spine is soft and supple, there is no meningismus. There is no cervical lymphadenopathy. LUNGS: Clear to auscultation bilaterally. There are no rales, wheezes or rhonchi. HEART: Regular rate and rhythm, no murmurs, clicks, rubs or gallops. ABDOMEN: Soft, non-tender, non-distended. There are bowel sounds in all four quadrants. No rebound or guarding. EXTREMITIES: There is no peripheral cyanosis or edema. No focal swelling or erythema. NEURO: The patient moves all four extremities with 5/5 strength. Cranial nerves II - XII are intact. Normal gait. Alert and oriented SKIN: There is no apparent rash or petechiae. HEME/LYMPHATIC: There is no evidence of excessive bruising or lymphedema. PSYCHIATRIC: The patient does not appear anxious or depressed. Somewhat bizarre affect and demeanor Procedures/MDM Patient was taken to a room, seen and evaluated. Comfort measures were initiated. Diagnostic tests were ordered and reviewed. 3 LEAD RHYTHM STRIP: Normal sinus rhythm without ectopy EK lead EKG reviewed by myself: Normal Sinus Rhythm Normal Moodus and intervals No ST elevation, depression, or T wave inversion Impression: Normal EKG MEDICAL DECISION MAKIN-year-old male presents with nonspecific chest pain in the setting of a normal EKG without obvious ischemic changes. Patient has 61 evaluations for chest pain within the last year at multiple hospitals. At this time, I doubt very much as these are all negative with troponins that he is having an acute ischemic event. He may have at worst chronic stable angina. As he states there is been no change in the severity or frequency of his discomfort, he appears to be clinically stable and appropriate for discharge. Departure Diagnosis: Primary Impression: Chest pain Condition: Stable Patient Instructions: Chest Pain, Uncertain Cause Additional Instructions: Please see your doctor for further testing. Return for any problems or concerns CAROLINA ARRIETA August 20, 2018 17:53
--- NOTE | 2018-08-22 14:33 | RADRPT ---
Vent Rate: 100 bpm RR Interval: 0 msec IL Interval: 172 msec QRS Duration: 96 msec QT Interval: 352 msec QTC Interval: 454 msec P-R-T [place]: 45 - -31 - 37 degrees Normal sinus rhythm Left axis deviation Incomplete right bundle branch block Moderate voltage criteria for LVH, may be normal variant Abnormal ECG Electronically Signed By: [facility]
== END 2018-08-20 18:05 | disposition home or self-care (01) ==
LOC: E/R 16:37
DX: R07.9 Chest pain, unspecified (principal); I10 Essential (primary) hypertension; Z79.01 Long term (current) use of anticoagulants; Z79.82 Long term (current) use of aspirin
CPT/HCPCS: 93005

== ENCOUNTER 2018-08-30 16:03 | Emergency (ER) | payer SELFPAY ==
[~2018-08-30] VITALS: Wt 89.0 kg
[2018-08-30 16:11] VITALS: BP 220/94; PULSE 112; RESP 18
--- NOTE | 2018-08-30 16:34 | ERD ---
ER Documentation Chief Complaint Chief Complaint CHEST PAIN X 2 DAYS SIGNED AMA FROM [facility] This is a 63-year-old gentleman with known history of coronary disease and multiple stents who presents with chest pain. The patient has an extensive QUAN E report with greater than 50 visits in the last 12 months for chest pain related issues to multiple hospitals in the [facility]. The patient was recently admitted in August for similar symptoms but left AGAINST MEDICAL ADVICE prior to receiving angiogram. He states that he was at [facility] admitted last night and left AGAINST MEDICAL ADVICE prior to angiogram this morning. Patient patient is reporting chest pain but cannot characterize durati on timing and onset. He describes that he needs to be admitted for an angiogram. Recent discharge summary Hospital Course The patient was admitted complaining of anginal pain. EKG did not show ischemic disease, trops negative x3. His anti-anginals including Ranexa and isosorbide mononitrate were uptitrated. The patient continued to complain of chest pain cristi roy MD was present, but was ambulatory without much apparent distress otherwise. We were unable to get IV access; and when a midline was attempted the patient refused the procedure. Although there was a strong suspicion the patient was dissembling; a cardiac cath was planned. The patient reported a severe anaphylactic reaction to iodinated contrast and requested pretreatment with benadryl and prednisone. He also requested someone to watch his Sri dog during the procedure, which had been staying in his hospital room with him. This was actually arranged by our talented social work lecturer. The morning of the cardiac cath the patient left AMA. ROS All systems reviewed and are negative except as per history of present illness. Medications Home Meds Active Scripts Ibuprofen* (Motrin*) 600 Mg Tab, 600 MG PO Q8, #30 TAB Prov:LAYO PAN 05/22/15 Reported Medications Ranolazine* (Ranexa*) 500 Mg Tab.sr.12h, 500 MG PO Q12, TAB 02/05/17 Metoprolol Tartrate* (Lopressor*) 100 Mg Tablet, 100 MG PO DAILY, #60 TAB 02/05/17 Lisinopril* (Lisinopril*) 10 Mg Tablet, 10 MG PO DAILY, #30 TAB 02/05/17 Clopidogrel Bisulfate* (Clopidogrel Bisulfate*) 75 Mg Tablet, 75 MG PO DAILY, #30 TAB 02/05/17 Isosorbide Mononitrate* (Isosorbide Mononitrate*) 120 Mg Tab.sr.24h, 120 MG PO DAILY, TAB.SA 02/05/17 Atorvastatin* (Atorvastatin*) 80 Mg Tablet, 80 MG PO HS, TAB 10/27/14 Amlodipine Besylate* (Amlodipine Besylate*) 10 Mg Tablet, 10 MG PO DAILY, TAB 10/27/14 Aspirin* (Aspirin* Chew) 81 Mg Tab.chew, 81 MG PO DAILY, TAB.CHEW 10/27/14 Nitroglycerin* (Nitroglycerin* SL) 0.4 Mg Tab.subl, 0.4 MG SL Q5MIN PRN for CHEST PAIN, BOTTLE 10/27/14 Carvedilol* (Carvedilol*) 12.5 Mg Tablet, 12.5 MG PO BID, TAB 10/27/14 Prasugrel Hydrochloride* (Effient*) 5 Mg Tablet, 5 MG PO DAILY, TAB 10/27/14 Tamsulosin Hcl* (Tamsulosin Hcl*) 0.4 Mg Cap.er.24h, 0.4 MG PO HS, CAP 10/27/14 Allergies Allergies: Coded Allergies: Penicillins (Unverified Allergy, Unknown, SHORTNESS OF BREATH, 02/05/17) Sulfa (Sulfonamide Antibiotics) (Unverified Allergy, Unknown, " GIVES ME TEMPERATURE.", 02/05/17) iodine (Unverified Allergy, Unknown, 02/05/17) PMhx/Soc History of Surgery: Yes Anesthesia Reaction: No Hx Neurological Disorder: No Hx Respiratory Disorders: Yes (bronchitis) Hx Cardiac Disorders: Yes (HTN,stable angina, cardiac stents X6) Hx Psychiatric Problems: Yes (anxiety) Hx Miscellaneous Medical Probl: Yes (hematochezia,costochondritis,flank pain,peripheral edema,cellulitis,sciatic) Hx Alcohol Use: No Hx Substance Use: No Hx Tobacco Use: No FmHx Family History: No diabetes Physical Exam Vitals Vital Signs Date Temp Pulse Resp B/P (MAP) Pulse Ox O2 O2 Flow FiO2 Time Delivery Rate 08/30/18 98.1 112 18 220/94 98 16:11 (136) Physical Exam General: Walking around, talking in no acute distress Head: Normocephalic, atraumatic. Eyes: Pupils equally reactive, EOM intact ENT: Moist mucous membranes Neck: Supple, no lymphadenopathy Respiratory: Lungs clear bilaterally, no distress Cardiovascular: RRR, no murmurs, rubs, or gallops Abdominal: Soft, non-tender, non-distended, no peritoneal signs : Deferred MSK: No edema, no unilateral swelling, 5/5 strength Neurologic: Alert and oriented, moving all extremities, normal speech, no focal weakness, no cerebellar signs Skin: No rash Psych: Normal mood Procedures/MDM Reviewing the patient's electronic medical record as well as his QUAN E report the patient has an extensive history of chronic pain, malingering and recurrent visits for chest pain related issues. In the last month alone at this hospital in another hospital the patient left AMA prior to receiving an angiogram x2. Patient does have a recent lexicon scan that was reported to be abnormal. However the patient does have a prolonged history of presenting with chest pain and leaving AGAINST MEDICAL ADVICE when hospitalized. The patient is reporting chest pain today but he is walking around talking and playing with his pet without difficulty. He is conversive and playing on his cellular phone. While the patient does have cardiac history and does have higher risk for cardiac etiology relative to normal population related to his chest pain, his presentation today does not seem to be consistent with acute coronary syndrome. This seems to be consistent with his chronic presentation of chronic pain and malingering. Regardless, the patient does have cardiac history would warrant laboratory testing and EKG. I have additionally reached out to his most recent washer and crusher tender, Dr. Ellison who confirms recent hospital stay and history. During our conversation the patient became very upset because I was discussing his recent hospitalizations and leaving AGAINST MEDICAL ADVICE. I recommended EKG and laboratory testing but the patient became very upset and states that he wants to go to a different hospital. I attempted to have a further conversation with the patient discussing the risks of leaving without cardiac evaluation but the patient stormed out of the emergency room and left refusing to sign paperwork. Departure Diagnosis: Primary Impression: Chest pain Chest pain type: unspecified Qualified Codes: R07.9 - Chest pain, unspecified Additional Impressions: Chronic pain Chronic pain type: chronic pain syndrome Qualified Codes: G89.4 - Chronic pain syndrome Malingering Condition: Stable Patient Instructions: Chronic Pain, Chest Pain, Uncertain Cause Referrals: COMMUNITY CLINICS YOU HAVE RECEIVED A MEDICAL SCREENING EXAM AND THE RESULTS INDICATE THAT YOU DO NOT HAVE A CONDITION THAT REQUIRES URGENT TREATMENT IN THE EMERGENCY DEPARTMENT. FURTHER EVALUATION AND TREATMENT OF YOUR CONDITION CAN WAIT UNTIL YOU ARE SEEN IN YOUR DOCTORS OFFICE WITHIN THE NEXT 1-2 DAYS. IT IS YOUR RESPONSIBILITY TO MAKE AN APPOINTMENT FOR FOLOW-UP CARE. IF YOU HAVE A PRIMARY DOCTOR --you should call your primary doctor and schedule an appointment IF YOU DO NOT HAVE A PRIMARY DOCTOR YOU CAN CALL OUR PHYSICIAN REFERRAL HOTLINE AT IF YOU CAN NOT AFFORD TO SEE A PHYSICIAN YOU CAN CHOSE FROM THE FOLLOWING [facility] CLINICS [facility] [address] [facility] [address] [facility] [address] [facility] [address]. [facility] [address] [facility] [facility]. [address] [facility]. [facility] YOU HAVE RECEIVED A MEDICAL SCREENING EXAM AND THE RESULTS INDICATE THAT YOU DO NOT HAVE A CONDITION THAT REQUIRES URGENT TREATMENT IN THE EMERGENCY DEPARTMENT. FURTHER EVALUATION AND TREATMENT OF YOUR CONDITION CAN WAIT UNTIL YOU ARE SEEN IN YOUR DOCTORS OFFICE WITHIN THE NEXT 1-2 DAYS. IT IS YOUR RESPONSIBILITY TO MAKE AN APPOINTMENT FOR FOLOW-UP CARE. IF YOU HAVE A PRIMARY DOCTOR --you should call your primary doctor and schedule and appointment IF YOU DO NOT HAVE A PRIMARY DOCTOR YOU CAN CALL OUR PHYSICIAN REFERRAL HOTLINE AT . IF YOU CAN NOT AFFORD TO SEE A PHYSICIAN YOU CAN CHOSE FROM THE FOLLOWING [facility] INSTITUTIONS: [facility] [address] [place] [address] [facility] [address] [place] [address] [facility] + [facility] [address] [place] [address] Additional Instructions: You are leaving against my medical advice prior to evaluation for your chest pain. FOllow up with your primary care doctor JOJO. ERIC YADAV MD August 30, 2018 16:34
== END 2018-08-30 17:46 | disposition left against medical advice (07) ==
LOC: E/R 16:03
DX: R07.9 Chest pain, unspecified (principal); G89.4 Chronic pain syndrome; I10 Essential (primary) hypertension; Z76.5 Malingerer [conscious simulation]; Z79.01 Long term (current) use of anticoagulants; Z79.82 Long term (current) use of aspirin; Z98.61 Coronary angioplasty status

== ENCOUNTER 2018-09-25 07:30 | Emergency (ER) | payer MEDICARE ==
[~2018-09-25] VITALS: Ht 167.6 cm; Wt 92.5 kg
[2018-09-25 07:34] VITALS: BP 195/94; PULSE 92; RESP 18; Ht 167.6 cm; Wt 92.5 kg
--- NOTE | 2018-09-25 08:12 | ERD ---
ER Documentation Chief Complaint Chief Complaint CP FOR 2 DAYS; NO SOB NOTED. SEEN IN DIFFERENT HOSPITALS FOR SAME C/O. HPI This is a 63-year-old gentleman with known history of coronary disease, chronic recurrent chest pain, anxiety, and multiple stents who presents with chest pain. Patient states pain is similar to multiple previous episodes. He has had multiple ED visits in the last 12 months for similar symptoms and has signed out AGAINST MEDICAL ADVICE multiple times from the hospital either after admission or prior to receiving an angiogram. He states he was admitted to [facility] just a few hours ago and states a coronary angiogram was scheduled for today, but then he was discharged from the hospital. Patient states he did not leave AMA from [facility] and has his discharge paperwork with him. He cannot explain exactly why he had an angiogram ordered but was discharged. Patient denies cough, no shortness of breath, no fevers or chills, no vomiting or diarrhea. ROS All systems reviewed and are negative except as per history of present illness. Medications Home Meds Active Scripts Ibuprofen* (Motrin*) 600 Mg Tab, 600 MG PO Q8, #30 TAB Prov:LAYO PAN 05/22/15 Reported Medications Ranolazine* (Ranexa*) 500 Mg Tab.sr.12h, 500 MG PO Q12, TAB 02/05/17 Metoprolol Tartrate* (Lopressor*) 100 Mg Tablet, 100 MG PO DAILY, #60 TAB 02/05/17 Lisinopril* (Lisinopril*) 10 Mg Tablet, 10 MG PO DAILY, #30 TAB 02/05/17 Clopidogrel Bisulfate* (Clopidogrel Bisulfate*) 75 Mg Tablet, 75 MG PO DAILY, #30 TAB 02/05/17 Isosorbide Mononitrate* (Isosorbide Mononitrate*) 120 Mg Tab.sr.24h, 120 MG PO DAILY, TAB.SA 02/05/17 Atorvastatin* (Atorvastatin*) 80 Mg Tablet, 80 MG PO HS, TAB 10/27/14 Amlodipine Besylate* (Amlodipine Besylate*) 10 Mg Tablet, 10 MG PO DAILY, TAB 10/27/14 Aspirin* (Aspirin* Chew) 81 Mg Tab.chew, 81 MG PO DAILY, TAB.CHEW 10/27/14 Nitroglycerin* (Nitroglycerin* SL) 0.4 Mg Tab.subl, 0.4 MG SL Q5MIN PRN for CHEST PAIN, BOTTLE 10/27/14 Carvedilol* (Carvedilol*) 12.5 Mg Tablet, 12.5 MG PO BID, TAB 10/27/14 Prasugrel Hydrochloride* (Effient*) 5 Mg Tablet, 5 MG PO DAILY, TAB 10/27/14 Tamsulosin Hcl* (Tamsulosin Hcl*) 0.4 Mg Cap.er.24h, 0.4 MG PO HS, CAP 10/27/14 Allergies Allergies: Coded Allergies: Penicillins (Unverified Allergy, Unknown, SHORTNESS OF BREATH, 02/05/17) Sulfa (Sulfonamide Antibiotics) (Unverified Allergy, Unknown, " GIVES ME TEMPERATURE.", 02/05/17) iodine (Unverified Allergy, Unknown, 02/05/17) PMhx/Soc Chronic recurrent chest pain, history of opioid abuse and dependence, benzodiazepine dependence, anxiety, coronary artery disease status post multiple coronary stents, CHF, chronic peripheral edema, ascending aortic aneurysm History of Surgery: Yes Anesthesia Reaction: No Hx Neurological Disorder: No Hx Respiratory Disorders: Yes (bronchitis) Hx Cardiac Disorders: Yes (HTN,stable angina, cardiac stents X6) Hx Psychiatric Problems: Yes (anxiety) Hx Miscellaneous Medical Probl: Yes (hematochezia,costochondritis,flank pain,peripheral edema,cellulitis,sciatic) Hx Alcohol Use: No Hx Substance Use: No Hx Tobacco Use: No Physical Exam Vitals Vital Signs Date Temp Pulse Resp B/P (MAP) Pulse Ox O2 O2 Flow FiO2 Time Delivery Rate 09/25/18 98.0 92 18 195/94 100 07:34 (127) Physical Exam Const: No acute distress, appears anxious, afebrile Resp: Clear to auscultation bilaterally Cardio: Regular rate and rhythm, no murmurs Abd: Soft, non tender, non distended. Skin: No petechiae or rashes Back: No midline or flank tenderness Ext: No cyanosis, or edema Neur: Awake and alert x3, gait stable, no focal deficits or facial asymmetry Psych: Appears anxious Procedures/MDM EKG performed, read by me revealed a normal sinus rhythm 87 bpm, left axis deviation, right ventricular conduction delay QRS duration 100 ms, no concerning ST elevations or depressions noted Plan was to do some blood work on the patient including a troponin, pain control, and reevaluate for disposition although patient refused all intervention in the ER and stated if he was not definitely being admitted 100% then he did not want anything to be done and wanted to leave. I did explain to him I cannot guarantee admission into the hospital but I would be happy to do a work-up in the emergency department and then make my decision after all the data is collected and after I reevaluate him although patient refused this. Patient left AGAINST MEDICAL ADVICE. Departure Diagnosis: Primary Impression: Chest pain Chest pain type: unspecified Qualified Codes: R07.9 - Chest pain, unspecified Additional Impressions: Acute anxiety Left against medical advice Condition: Stable HARRIET NINA MD Sep 25, 2018 08:12
== END 2018-09-25 09:45 | disposition left against medical advice (07) ==
LOC: E/R 07:30
DX: F41.9 Anxiety disorder, unspecified (principal); I11.0 Hypertensive heart disease with heart failure; I50.9 Heart failure, unspecified; I25.10 Atherosclerotic heart disease of native coronary artery without angina pectoris; Z79.02 Long term (current) use of antithrombotics/antiplatelets; Z98.61 Coronary angioplasty status; Z79.82 Long term (current) use of aspirin
CPT/HCPCS: 93005

== ENCOUNTER 2018-12-08 13:04 | Emergency (ER) | payer MEDICARE ==
[~2018-12-08] VITALS: Ht 167.6 cm; Wt 90.9 kg
[2018-12-08 13:15] VITALS: BP 163/73; PULSE 95; RESP 18; Ht 167.6 cm; Wt 90.9 kg
== END 2018-12-08 13:46 | disposition home or self-care (01) ==
LOC: E/R 13:04
DX: I10 Essential (primary) hypertension (principal); Z79.01 Long term (current) use of anticoagulants; Z79.82 Long term (current) use of aspirin
CPT/HCPCS: 93005